=== PATIENT | male | born 1955 | race African-American/Black ===

== ENCOUNTER 2018-02-21 04:02 | Emergency (ER) | payer SELFPAY ==
[2018-02-21 04:27] VITALS: TEMP 98.4; BMI 21.7
--- NOTE | 2018-02-21 05:08 | PDOC ---
History of Present Illness - General Chief Complaint: Alcohol intoxication Stated Complaint: INTOX Time Seen by Provider: 02/21/18 04:39 Past History - Past Medical History COPD: No HTN: Yes - Suicide/Smoking/Psychosocial Hx Smoking History: Current every day smoker Number of Cigarettes Smoked Daily: 20 Information on smoking cessation initiated: No *Physical Exam - Vital Signs Last Vital Signs Temp Pulse Resp BP Pulse Ox 98.4 F 78 18 131/77 99 02/21/18 04:21 02/21/18 04:21 02/21/18 04:21 02/21/18 04:21 02/21/18 04:21 *DC/Admit/Observation/Transfer - Discharge Dispostion Condition at time of disposition: Stable - Referrals - Patient Instructions - Post Discharge Activity
--- NOTE | 2018-02-21 07:50 | PDOC ---
Attending Attestation - Medical Decision Making 02/21/18 10:26 Documentation prepared by Avery Eugene, acting as medical administrative technician for Daniel De Anda MD. <Avery Eugene - Last Filed: 02/21/18 10:26> - Resident Resident Name: Jose Edmond - ED Attending Attestation I have performed the following: I have examined & evaluated the patient, The case was reviewed & discussed with the resident, I agree w/resident's findings & plan, Exceptions are as noted - HPI HPI: 02/21/18 07:51 62y M htn presenting with complaint complaint of wanting to get 'checked out'. The patient states that he was in his usual state of health earlier today, had a verbal altercation with his girlfriend who kciked him out of his shared apartment. The pt states he then developed a sharp, pulsating pain in his L chest that was nonraditing lasting approx 15 minutes before resolving - no associated sob, diaphoresis, n/v, cough, fever, abd pain, back pain. Pt resolved spontaneously. He then amanuel tto the police departmnt who told him to come to the ED. pt states he did drink a few beers earlier tonight. pt currently is asypmtomatic. pt notes that he occasionally has this type of pain for the past year and a half, sometimes it comes when heis working and lifting heavy boxes, but sometimes comes when he is relaxing. pt is a smoker. no konwn famly hx of heart disease pmd: dr. cardona. GENERAL: The patient is awake, alert, and fully oriented, Nontoxic - in no acute distress. HEAD: Normocephalic, atraumatic. EYES: extraocular movements intact, sclera anicteric, conjunctiva clear. ENT: Normal voice, Moist mucous membranes. NECK: Normal range of motion, supple LUNGS: Breath sounds equal, clear to auscultation bilaterally. No wheezes, no rhonchi, no rales. HEART: Regular rate and rhythm, normal S1 and S2 without murmur, rub or gallop. ABDOMEN: Soft, nontender, normoactive bowel sounds. No guarding, no rebound. . No CVA tenderness EXTREMITIES: Normal range of motion, no edema. No clubbing or cyanosis. No cords, erythema, or tenderness. NEUROLOGICAL: No facial assymetry, Normal speech PSYCH: Normal mood, normal affect. SKIN: Warm, Dry, normal turgor, The patient's chest pain is atypical, will obtain a troponin, EKG, chest x-ray. If workup is negative we will have the patient follow-up with cardiology for further workup and risk stratification. - Physicial Exam PE: 02/22/18 13:35 see above - Medical Decision Making 02/21/18 10:15 trop neg x 1 awaiting 2nd trop at 11:30 if neg and pt feeling asypmtomatic will dc with pmd/card fu 02/21/18 14:15 trop x 2 neg pt asypmtomatic will dc the pt with pmd and card fu return precautions were discussed <Daniel De Anda - Last Filed: 02/22/18 13:36> Heart Score/ECG Review - ECG Impressions Comment:: 02/21/18 10:16 Twelve-lead EKG was performed and reviewed by me. There is normal sinus rhythm with a normal rate. Rate of 82 Right lopez axis LVH <Daniel De Anda - Last Filed: 02/22/18 13:36> ED Treatment Course - LABORATORY CBC & Chemistry Diagram: 02/21/18 08:30 02/21/18 08:30 - ADDITIONAL ORDERS Additional order review: Laboratory Results 02/21/18 08:30 Sodium 142 Potassium 4.0 Chloride 107 Carbon Dioxide 27 Anion Gap 8 BUN 18 Creatinine 0.9 Creat Clearance w eGFR > 60 Random Glucose 99 Calcium 8.5 Total Bilirubin 0.1 L AST 26 ALT 29 Alkaline Phosphatase 80 Creatine Kinase 201 Troponin I 0.02 Total Protein 7.4 Albumin 3.9 02/21/18 08:30 RBC 4.47 MCV 91.4 MCHC 33.5 RDW 14.5 MPV 7.5 Neutrophils % 62.2 Lymphocytes % 26.6 Monocytes % 8.4 Eosinophils % 1.8 Basophils % 1.0 - RADIOLOGY Radiograph Interpretation: 02/21/18 10:24 EXAM: CXR INTERPETED BY: Dr. Wise REVIEWED BY: Dr. De Anda IMPRESSION: No acute pathology. Hyperinflation. No comparison studies - Medications Given in the ED: ED Medications Discontinued Medications Generic Name Dose Route Start Last Admin Trade Name Freq PRN Reason Stop Dose Admin Aspirin 162 mg 02/21/18 08:06 02/21/18 08:18 Asa - PO 02/21/18 08:07 162 mg ONCE ONE Administration <Avery Eugene - Last Filed: 02/21/18 10:26> - LABORATORY CBC & Chemistry Diagram: 02/21/18 08:30 02/21/18 08:30 <Daniel De Anda - Last Filed: 02/22/18 13:36>
--- NOTE | 2018-02-21 08:04 | PDOC ---
History of Present Illness - General Chief Complaint: Alcohol intoxication Stated Complaint: INTOX Time Seen by Provider: 02/21/18 04:39 History Source: Patient Exam Limitations: No Limitations - History of Present Illness Initial Comments: 02/21/18 07:54 62 year old male with pmhx of HTN presented to the ED today by the police after an argument with his girl friend due to chest discofort sharp , and pulsating last 15 min comes and goes radiated to right shoulder, denies any sob, cough or diaphoresis denies any numbness or tingling in his ext . pt also reports pulsating headache 7/10 in left temporal area. Pt denies dizziness, lightheadedness, sore throat , recent cold, abdominal pain , N/V/D/C, denies any dysuria or hematuria. pt smoked marjuana last night , he drink 2-3 beers ever night . PMHX: HTN PSHx: stestched in forhead and left eyelid Allergies: NKDA Meds none FH: significant for heart disease in his dad with pace maker , HTN Mother BP and DM social hx: 1/2 PPD /20 years. drink beer and alcohol every night after work , smoke marijuana last use last night. Physical exam: Vital Signs Period Temp Pulse Resp BP Sys/Bennett Pulse Ox Last 24 Hr 98.4 F 78 18 131/77 99 General: well nourished in NAD Head: NC/AT , old steches caitlyn in left eye lid Neck: supple Lungs: CTA B/L Heart: S1, S2, RRR, 2/6 systolic murmur best heard in LLSB. Neuro: no focal deficit, normal speech , normal gait , no tremor, no nystagmus , sensation symmetric, strength 5/5 upper and lower. LE: +2 DP, no edema Psych: appropriate mood and effect. Past History - Past Medical History Allergies/Adverse Reactions: Allergies Allergy/AdvReac Type Severity Reaction Status Date / Time No Known Allergies Allergy Verified 02/21/18 08:18 Home Medications: Ambulatory Orders NK [No Known Home Medication] 02/21/18 COPD: No HTN: Yes - Suicide/Smoking/Psychosocial Hx Smoking History: Current every day smoker Number of Cigarettes Smoked Daily: 20 Information on smoking cessation initiated: No *Physical Exam - Vital Signs Last Vital Signs Temp Pulse Resp BP Pulse Ox 98.4 F 78 18 131/77 99 02/21/18 04:21 02/21/18 04:21 02/21/18 04:21 02/21/18 04:21 02/21/18 04:21 ED Treatment Course - LABORATORY CBC & Chemistry Diagram: 02/21/18 08:30 02/21/18 08:30 *DC/Admit/Observation/Transfer Diagnosis at time of Disposition: Chest pain - Discharge Dispostion Disposition: HOME Condition at time of disposition: Stable Admit: No - Referrals Referrals: Suleman Da Silva MD [Staff Physician] - 1 week Williams Melendez MD [Staff Physician] - - Patient Instructions Printed Discharge Instructions: DI for Alcohol Abuse, DI for Chest Pain Additional Instructions: you presented to the Ed due to chest pain , the work up come back negative You will be discharged home please follow up with your primary doctor Williams Melendez within one week Please follow up with cardiology for further evaluation and stress test if you develop fever, chills or sever chest pain please call 911 or return to emergency room as soon as possible - Post Discharge Activity
[2018-02-21] MEDS ORDERED: ASPIRIN 81 MG CHEWABLE TABLETS PO ONE (08:06)
[2018-02-21] MEDS ORDERED: ASPIRIN COATED 81 MG TABLET.EC ONE (08:21)
[2018-02-21 08:43] LABS: EOS % 1.8 % (0-4.5); HEMATOCRIT 40.9 % (35.4-49); HEMOGLOBIN 13.7 GM/dL (11.7-16.9); LYMPH % 26.6 % (8-40); MCH 30.6 pg (25.7-33.7); MCHC 33.5 g/dl (32.0-35.9); MEAN CELL VOLUME 91.4 fl (80-96); MEAN PLT VOLUME 7.5 fl (7.5-11.1); MONO % 8.4 % (3.8-10.2); NEUT % 62.2 % (42.8-82.8); PLATELET COUNT 335 K/MM3 (134-434); RBC 4.47 M/mm3 (4.00-5.60); RDW 14.5 % (11.9-15.9); WHITE BLOOD COUNT 5.9 K/mm3 (4.0-10.0)
[2018-02-21 09:09] LABS: ALBUMIN 3.9 g/dl (3.4-5.0); ALK PHOS 80 U/L (45-117); ANION GAP 8 (8-16); BILIRUBIN,TOTAL 0.1 mg/dL (0.2-1.0); BLOOD UREA NITROGEN 18 mg/dL (7-18); CALCIUM 8.5 mg/dL (8.5-10.1); CHLORIDE 107 mmol/L (98-107); CO2 27 mmol/L (21-32); CREATININE 0.9 mg/dL (0.7-1.3); GLUCOSE,RANDOM 99 mg/dL (74-106); SGOT/AST 26 U/L (15-37); SGPT/ALT 29 U/L (12-78); SODIUM 142 mmol/L (136-145); TOT PROT 7.4 g/dl (6.4-8.2)
--- NOTE | 2018-02-21 11:03 | EKG ---
Test Reason : Blood Pressure : / mmHG Vent. Rate : 082 BPM Atrial Rate : 082 BPM P-R Int : 130 ms QRS Dur : 090 ms QT Int : 384 ms P-R-T Axes : 077 090 070 degrees QTc Int : 448 ms NORMAL SINUS RHYTHM BIATRIAL ENLARGEMENT RIGHTWARD AXIS LEFT VENTRICULAR HYPERTROPHY CANNOT RULE OUT SEPTAL INFARCT , AGE UNDETERMINED ABNORMAL ECG NO PREVIOUS ECGS AVAILABLE Confirmed by BRIGID PFEIFFER, SOCORRO ([id number]) on 02/21/2018 11:03:32 AM Referred By: Confirmed By:SOCORRO RAINEY MD
[2018-02-21 13:16] VITALS: BP 128/74; PULSE 71
== END 2018-02-21 13:16 | disposition home or self-care (01) ==
LOC: JER 04:02
DX: R07.89 Other chest pain (principal); I10 Essential (primary) hypertension
CPT/HCPCS: 36415; 71046-TC-FY; 80053; 82550; 82553; 84484; 85025; 93005; 93010; 99284-25

== ENCOUNTER 2022-04-20 16:38 | Emergency (ER) | payer SELFPAY ==
[2022-04-20 16:57] VITALS: TEMP 99; BMI 23.5
[2022-04-20] MEDS ORDERED: ASPIRIN 325 MG TABLET PO ONE (18:47)
[2022-04-20] MEDS ORDERED: HEPARIN NA (PORCINE) 5,000 UNITS/ML 1ML VIAL IVPUSH ONE (18:48)
[2022-04-20] MEDS ORDERED: ASPIRIN 325 MG TABLET ONE (19:27)
[2022-04-20] MEDS ORDERED: HEPARIN NA (PORCINE) 5,000 UNITS/ML 1ML VIAL ONE (19:28)
[2022-04-20 20:51] VITALS: BP 124/77; PULSE 110
[2022-04-20] MEDS ORDERED: TICAGRELOR 60 MG TABLET PO SCH (22:00)
== END 2022-04-20 19:57 | disposition short-term general hospital (02) ==
LOC: JER 16:38
PROC: 3E033GC Introduction of Other Therapeutic Substance into Peripheral Vein, Percutaneous Approach (ICD-10-PCS; principal; 2022-04-20)
DX: I21.3 ST elevation (STEMI) myocardial infarction of unspecified site (principal); M25.511 Pain in right shoulder; M25.512 Pain in left shoulder
CPT/HCPCS: 73030-TC-LT-FY; 73030-TC-RT-FY; 93005; 93010; 99285-25; J1644

== ENCOUNTER 2023-06-14 08:02 | Inpatient (IN) | payer OTHER ==
[2023-06-14 09:49] LABS: BASO % 0.5 % (0-2.0); EOS % 0.1 % (0-4.5); HEMATOCRIT 38.7 % (35.4-49); HEMOGLOBIN 12.8 GM/dL (11.7-16.9); MCH 30.6 pg (25.7-33.7); MCHC 33.1 g/dl (32.0-35.9); MEAN CELL VOLUME 92.5 fl (80-96); MEAN PLT VOLUME 7.8 fl (7.5-11.1); NEUT % 75.4 % (42.8-82.8); PLATELET COUNT 347 10^3/uL (134-434); RBC 4.18 M/mm3 (4.00-5.60); WHITE BLOOD COUNT 6.8 K/mm3 (4.0-10.0)
[2023-06-14 09:53] LABS: INR 1.03 (0.83-1.09); PROTHROMBIN TIME (PATIENT) 11.9 SEC (9.7-13.0)
[2023-06-14 09:56] LABS: ACTIVATED PTT 31.4 SECONDS (25.2-36.5)
[2023-06-14 10:01] LABS: URINE APPEARANCE TURBID; URINE COLOR RED; URINE GLUCOSE (UA) 2+ (NEGATIVE)
[2023-06-14 10:02] LABS: PH,URINE 5.5 (5.0-8.0); URINE BILIRUBIN SMALL (NEGATIVE); URINE KETONE TRACE (NEGATIVE); URINE LEUK ESTERASE 1+ (NEGATIVE); URINE NITRITE NEGATIVE (NEGATIVE); URINE PROTEIN 4+ (NEGATIVE); URINE RBC TMTC /uL (0-23.9); URINE UROBILINOGEN 0.2 mg/dL (0.2-1.0); URINE WBC 50-100 /uL (0-25.8)
[2023-06-14 10:19] LABS: POTASSIUM 4.3 mmol/L (3.5-5.1)
[2023-06-14 10:22] LABS: ALBUMIN 4.3 g/dl (3.4-5.0)
[2023-06-14 10:25] LABS: CREATININE 1.2 mg/dL (0.55-1.3)
[2023-06-14 10:27] LABS: BILIRUBIN,TOTAL 0.3 mg/dL (0.2-1); TOT PROT 7.7 g/dl (6.4-8.2)
[2023-06-14] MEDS ORDERED: NITROFURANTOIN MACROCRYSTAL 50 MG CAPSULE (FP) PO ONE (14:15)
[2023-06-14] MEDS: NITROFURANTOIN MACROCRYSTAL 50 MG CAPSULE (FP) PO SCH ×2 (14:25→14:40)
[2023-06-14] MEDS ORDERED: morphine CARPU-JECT 4 MG/1 ML DISP.SYRIN IVPUSH ONE (15:29)
[2023-06-14] MEDS ORDERED: morphine SULFATE 4 MG/ML VIAL ONE (15:42)
[2023-06-14] MEDS ORDERED: ACETAMINOPHEN 325 MG TABLET (FP) PO PRN (16:01)
[2023-06-14] MEDS ORDERED: morphine SULFATE 4 MG/ML VIAL IVPUSH PRN (16:45)
[2023-06-14] MEDS: CEFTRIAXONE 1 GM in DEXTROSE 5%-WATER - 50 ML IVPB SCH (17:32)
[2023-06-14] MEDS ORDERED: CEFTRIAXONE 1 GM/50 ML BAG ONE (17:33)
[2023-06-14] MEDS: CARVEDILOL 6.25 MG TABLET (FP) PO SCH (21:40)
[2023-06-14 22:28] LABS: HEMATOCRIT 38.6 % (35.4-49); HEMOGLOBIN 13.1 GM/dL (11.7-16.9); MCH 30.6 pg (25.7-33.7); MCHC 33.9 g/dl (32.0-35.9); MEAN CELL VOLUME 90.5 fl (80-96); MEAN PLT VOLUME 7.2 fl (7.5-11.1); PLATELET COUNT 355 10^3/uL (134-434); RBC 4.27 M/mm3 (4.00-5.60); RDW 14.8 % (11.9-15.9); WHITE BLOOD COUNT 9.2 K/mm3 (4.0-10.0)
[2023-06-15] MEDS ORDERED: morphine SULFATE 4 MG/ML VIAL ONE (00:26)
[2023-06-15] MEDS ORDERED: LABETALOL HCL 5 MG/1 ML (100MG/20 ML VIAL) IVPUSH ONE (00:52)
[2023-06-15] MEDS ORDERED: LABETALOL HCL 20 MG/4 ML VIAL ONE (01:07)
[2023-06-15 08:02] VITALS: BMI 29.6
[2023-06-15 08:02] LABS: BASO % 0.1 % (0-2.0); HEMATOCRIT 33.6 % (35.4-49); HEMOGLOBIN 11.1 GM/dL (11.7-16.9); LYMPH % 5.6 % (8-40); MCH 30.7 pg (25.7-33.7); MEAN CELL VOLUME 92.9 fl (80-96); MEAN PLT VOLUME 8.4 fl (7.5-11.1); MONO % 8.4 % (3.8-10.2); NEUT % 85.9 % (42.8-82.8); PLATELET COUNT 321 10^3/uL (134-434); RBC 3.61 M/mm3 (4.00-5.60); RDW 14.8 % (11.9-15.9); WHITE BLOOD COUNT 14.2 K/mm3 (4.0-10.0)
[2023-06-15 08:41] LABS: POTASSIUM 4.6 mmol/L (3.5-5.1)
[2023-06-15 08:46] LABS: CALCIUM 9.2 mg/dL (8.5-10.1)
[2023-06-15 08:47] LABS: ALBUMIN 3.8 g/dl (3.4-5.0)
[2023-06-15 08:48] LABS: BLOOD UREA NITROGEN 44.5 mg/dL (7-18)
[2023-06-15 08:49] LABS: CREATININE 1.8 mg/dL (0.55-1.3)
[2023-06-15] MEDS ORDERED: SODIUM CHLORIDE 0.45% 1,000 ML IV SCH (09:30)
[2023-06-15] MEDS: CARVEDILOL 6.25 MG TABLET (FP) PO SCH ×2 (10:12→22:28)
[2023-06-15] MEDS: CEFTRIAXONE 1 GM in DEXTROSE 5%-WATER - 50 ML IVPB SCH (10:15)
[2023-06-15 14:51] LABS: N-TERMINAL BNP 3836.9 pg/ml (5-125)
[2023-06-15] MEDS ORDERED: SODIUM CHLORIDE 0.45% 250 ML IV SCH (18:15)
[2023-06-15] MEDS ORDERED: ATORVASTATIN CA 80 MG TABLET (FP) PO SCH (22:00)
[2023-06-16 07:54] LABS: HEMATOCRIT 26.5 % (35.4-49); HEMOGLOBIN 8.9 GM/dL (11.7-16.9); MCHC 33.7 g/dl (32.0-35.9); MEAN CELL VOLUME 92.1 fl (80-96); MEAN PLT VOLUME 8.5 fl (7.5-11.1); PLATELET COUNT 265 10^3/uL (134-434); RBC 2.88 M/mm3 (4.00-5.60); RDW 14.5 % (11.9-15.9); WHITE BLOOD COUNT 7.1 K/mm3 (4.0-10.0)
[2023-06-16 07:58] LABS: POTASSIUM 4.1 mmol/L (3.5-5.1)
[2023-06-16 08:14] LABS: CALCIUM 8.6 mg/dL (8.5-10.1)
[2023-06-16 08:15] LABS: ALBUMIN 3.3 g/dl (3.4-5.0); BLOOD UREA NITROGEN 47.1 mg/dL (7-18); MAGNESIUM 2.3 mg/dL (1.8-2.4)
[2023-06-16 08:16] LABS: CREATININE 1.3 mg/dL (0.55-1.3)
[2023-06-16 08:17] LABS: BILIRUBIN,TOTAL 0.6 mg/dL (0.2-1)
[2023-06-16 08:18] LABS: PHOSPHOROUS 3.2 mg/dL (2.5-4.9); TOT PROT 6.1 g/dl (6.4-8.2)
[2023-06-16] MEDS ORDERED: SEVOFLURANE 250 ML BTL ONE (08:21)
[2023-06-16] MEDS ORDERED: PROPOFOL 20 ML ONE (08:23)
[2023-06-16] MEDS ORDERED: MIDAZOLAM HCL 2 MG/2 ML SINGLE DOSE VIAL ONE (08:23)
[2023-06-16] MEDS ORDERED: KETAMINE HCL 500 MG/10 ML VIAL ONE (08:23)
[2023-06-16] MEDS ORDERED: ONDANSETRON 4 MG/2 ML VIAL ONE (08:24)
[2023-06-16] MEDS ORDERED: ceFAZolin SODIUM 1 GM VIAL ONE (09:01)
[2023-06-16] MEDS ORDERED: ceFAZolin SODIUM 1 GM VIAL IVPB ONE (09:01)
[2023-06-16] MEDS ORDERED: oxyCODONE HCL 5 MG TABLET PO PRN (09:38)
[2023-06-16] MEDS: CARVEDILOL 6.25 MG TABLET (FP) PO SCH ×2 (10:00→21:33)
[2023-06-16] MEDS: CEFTRIAXONE 1 GM in DEXTROSE 5%-WATER - 50 ML IVPB SCH (10:00)
[2023-06-16] MEDS ORDERED: ACETAMINOPHEN 325 MG TABLET (FP) PO PRN (10:04)
[2023-06-16] MEDS ORDERED: morphine SULFATE 4 MG/ML VIAL IVPUSH PRN (10:04)
[2023-06-16] MEDS: ATORVASTATIN CA 80 MG TABLET (FP) PO SCH (21:33)
[2023-06-17 06:05] VITALS: RESP 18
[2023-06-17 08:23] LABS: HEMATOCRIT 21.2 % (35.4-49); HEMOGLOBIN 7.2 GM/dL (11.7-16.9); MCH 31.6 pg (25.7-33.7); MCHC 34.1 g/dl (32.0-35.9); MEAN CELL VOLUME 92.5 fl (80-96); MEAN PLT VOLUME 8.7 fl (7.5-11.1); PLATELET COUNT 216 10^3/uL (134-434); RBC 2.29 M/mm3 (4.00-5.60); RDW 14.1 % (11.9-15.9); WHITE BLOOD COUNT 6.7 K/mm3 (4.0-10.0)
[2023-06-17 08:33] LABS: POTASSIUM 4.4 mmol/L (3.5-5.1)
[2023-06-17 08:42] LABS: ALBUMIN 2.9 g/dl (3.4-5.0); BLOOD UREA NITROGEN 26.3 mg/dL (7-18); CALCIUM 8.3 mg/dL (8.5-10.1); MAGNESIUM 2.1 mg/dL (1.8-2.4)
[2023-06-17 08:45] LABS: PHOSPHOROUS 2.9 mg/dL (2.5-4.9)
[2023-06-17 08:46] LABS: BILIRUBIN,TOTAL 0.6 mg/dL (0.2-1); TOT PROT 5.4 g/dl (6.4-8.2)
[2023-06-17] MEDS: CARVEDILOL 6.25 MG TABLET (FP) PO SCH ×2 (10:01→21:53)
[2023-06-17] MEDS: CEFTRIAXONE 1 GM in DEXTROSE 5%-WATER - 50 ML IVPB SCH (10:01)
[2023-06-17] MEDS: ATORVASTATIN CA 80 MG TABLET (FP) PO SCH (21:53)
[2023-06-18 08:52] LABS: HEMATOCRIT 26.6 % (35.4-49); HEMOGLOBIN 9.2 GM/dL (11.7-16.9); MCH 31.2 pg (25.7-33.7); MCHC 34.7 g/dl (32.0-35.9); MEAN CELL VOLUME 89.8 fl (80-96); MEAN PLT VOLUME 7.9 fl (7.5-11.1); PLATELET COUNT 246 10^3/uL (134-434); RBC 2.96 M/mm3 (4.00-5.60); RDW 15.4 % (11.9-15.9); WHITE BLOOD COUNT 7.2 K/mm3 (4.0-10.0)
[2023-06-18 09:18] LABS: POTASSIUM 4.5 mmol/L (3.5-5.1)
[2023-06-18 09:28] LABS: IRON SERUM 71 ug/dL (50-175)
[2023-06-18 09:29] LABS: TOTAL IRON BINDING CAPACITY 213 ug/dL (250-450)
[2023-06-18 09:30] LABS: CALCIUM 8.5 mg/dL (8.5-10.1)
[2023-06-18 09:31] LABS: BLOOD UREA NITROGEN 15.7 mg/dL (7-18); MAGNESIUM 1.9 mg/dL (1.8-2.4)
[2023-06-18 09:32] LABS: PHOSPHOROUS 3.1 mg/dL (2.5-4.9)
[2023-06-18 09:33] LABS: CREATININE 0.9 mg/dL (0.55-1.3)
[2023-06-18 09:35] LABS: TOT PROT 5.8 g/dl (6.4-8.2)
[2023-06-18 09:36] LABS: BILIRUBIN,TOTAL 0.8 mg/dL (0.2-1)
[2023-06-18] MEDS: CEFTRIAXONE 1 GM in DEXTROSE 5%-WATER - 50 ML IVPB SCH (10:49)
[2023-06-18] MEDS: CARVEDILOL 6.25 MG TABLET (FP) PO SCH (10:49)
[2023-06-18 12:09] VITALS: BP 97/63; PULSE 57; TEMP 98.5
== END 2023-06-18 13:03 | disposition left against medical advice (07) | DRG 717 ==
LOC: JER 08:02 → JERBED 15:21 → J4W 06-15 01:47
PROVIDERS: ADMIT Internal Medicine; ATTEND Internal Medicine
PROC: 0TCD8ZZ Extirpation of Matter from Urethra, Via Natural or Artificial Opening Endoscopic (ICD-10-PCS; 2023-06-16)
PROC: 0W3R8ZZ Control Bleeding in Genitourinary Tract, Via Natural or Artificial Opening Endoscopic (ICD-10-PCS; principal; 2023-06-16 08:30)
DX: N40.1 Benign prostatic hyperplasia with lower urinary tract symptoms (principal); N17.9 Acute kidney failure, unspecified; N39.0 Urinary tract infection, site not specified; I10 Essential (primary) hypertension; I25.10 Atherosclerotic heart disease of native coronary artery without angina pectoris; R31.0 Gross hematuria; F17.210 Nicotine dependence, cigarettes, uncomplicated; R33.9 Retention of urine, unspecified; I25.5 Ischemic cardiomyopathy; F10.10 Alcohol abuse, uncomplicated; Z95.5 Presence of coronary angioplasty implant and graft; D64.9 Anemia, unspecified
CPT/HCPCS: 36415; 36430; 71046-TC-FY; 74178-TC; 80053; 80061; 81003; 82607; 82728; 83036; 83540; 83550; 83690; 83735; 83880; 84100; 84443; 84466; 84484; 85025; 85027; 85045; 85610; 85730; 86850; 86900; 86901; 86922; 87086; 93005; 93010; 93306-TC; 94760; 99285-25; P9058; Q9967

== ENCOUNTER 2023-07-03 17:52 | Emergency (ER) | payer OTHER ==
[2023-07-03 18:03] VITALS: BP 139/88; PULSE 80; RESP 20; TEMP 98.2; BMI 19.8
[2023-07-03 21:20] LABS: BASO % 1.2 % (0-2.0); EOS % 1.3 % (0-4.5); HEMATOCRIT 27.9 % (35.4-49); HEMOGLOBIN 9.3 GM/dL (11.7-16.9); LYMPH % 32.7 % (8-40); MCH 31.5 pg (25.7-33.7); MCHC 33.4 g/dl (32.0-35.9); MEAN CELL VOLUME 94.5 fl (80-96); MONO % 8.4 % (3.8-10.2); NEUT % 56.4 % (42.8-82.8); PLATELET COUNT 406 10^3/uL (134-434); RBC 2.96 M/mm3 (4.00-5.60); WHITE BLOOD COUNT 4.7 K/mm3 (4.0-10.0)
[2023-07-03 21:30] LABS: EPI CELLS 14 /uL (0-25.1); HYALINE CASTS 51 /uL (0-3.1); URINE APPEARANCE TURBID; URINE BILIRUBIN 2+ (NEGATIVE); URINE COLOR RED; URINE GLUCOSE (UA) NEGATIVE (NEGATIVE); URINE KETONE NEGATIVE (NEGATIVE); URINE LEUK ESTERASE 3+ (NEGATIVE); URINE NITRITE POSITIVE (NEGATIVE); URINE PROTEIN 2+ (NEGATIVE); URINE RBC 17895 /uL (0-23.9); URINE UROBILINOGEN 0.2 mg/dL (0.2-1.0); URINE WBC 39 /uL (0-25.8)
[2023-07-03 21:42] LABS: POTASSIUM 4.1 mmol/L (3.5-5.1)
[2023-07-03 21:44] LABS: CALCIUM 8.8 mg/dL (8.5-10.1)
[2023-07-03 21:45] LABS: ALBUMIN 3.2 g/dl (3.4-5.0); BLOOD UREA NITROGEN 11.7 mg/dL (7-18)
[2023-07-03 21:48] LABS: CREATININE 1.1 mg/dL (0.55-1.3)
[2023-07-03 21:49] LABS: TOT PROT 6.2 g/dl (6.4-8.2)
[2023-07-03 21:50] LABS: BILIRUBIN,TOTAL 0.3 mg/dL (0.2-1)
[2023-07-03 22:05] LABS: URINE BACTERIA NONE SEEN /uL (0-1359)
[2023-07-03] MEDS ORDERED: CEFTRIAXONE 1 GM/50 ML BAG ONE (22:36)
== END 2023-07-03 23:07 | disposition home or self-care (01) ==
LOC: JER 17:52
DX: N30.01 Acute cystitis with hematuria (principal); R30.0 Dysuria
CPT/HCPCS: 36415; 80053; 81003; 85025; 87086; 96374; 99284-25

== ENCOUNTER 2023-10-21 07:52 | Observation (INO) | payer OTHER ==
[2023-10-21 09:44] LABS: INR 1.1 (0.83-1.09); PROTHROMBIN TIME (PATIENT) 12.7 SEC (9.7-13.0)
[2023-10-21 09:45] LABS: BASO % 1.4 % (0-2.0); EOS % 1.4 % (0-4.5); HEMOGLOBIN 8.5 GM/dL (11.7-16.9); LYMPH % 7.7 % (8-40); MCH 23.6 pg (25.7-33.7); MCHC 32.6 g/dl (32.0-35.9); MEAN CELL VOLUME 72.5 fl (80-96); MEAN PLT VOLUME 7.4 fl (7.5-11.1); MONO % 11.6 % (3.8-10.2); NEUT % 77.9 % (42.8-82.8); PLATELET COUNT 530 10^3/uL (134-434); RBC 3.59 M/mm3 (4.00-5.60); RDW 24.2 % (11.9-15.9); WHITE BLOOD COUNT 4.8 K/mm3 (4.0-10.0)
[2023-10-21 09:55] LABS: POTASSIUM 4.5 mmol/L (3.5-5.1)
[2023-10-21 09:57] LABS: CALCIUM 8.8 mg/dL (8.5-10.1)
[2023-10-21 09:58] LABS: ALBUMIN 3.6 g/dl (3.4-5.0); BLOOD UREA NITROGEN 18.9 mg/dL (7-18)
[2023-10-21 10:01] LABS: CREATININE 1.2 mg/dL (0.55-1.3)
[2023-10-21 10:02] LABS: MAGNESIUM 2.1 mg/dL (1.8-2.4)
[2023-10-21 10:03] LABS: BILIRUBIN,TOTAL 0.4 mg/dL (0.2-1); TOT PROT 6.9 g/dl (6.4-8.2)
[2023-10-21 10:04] LABS: N-TERMINAL BNP 390.4 pg/ml (5-125)
[2023-10-21] MEDS ORDERED: ASPIRIN 81 MG CHEWABLE TABLETS PO ONE (10:26)
[2023-10-21] MEDS ORDERED: ASPIRIN 81 MG CHEWABLE TABLETS ONE (10:28)
[2023-10-21 11:12] LABS: ANISOCYTOSIS 3+; MACROCYTOSIS 1+; OVALOCYTE 1+; TARGET CELLS 1+
[2023-10-21] MEDS ORDERED: ENOXAPARIN NA (PORCINE) 60 MG/0.6 ML DISP.SYRIN SQ SCH (12:45)
[2023-10-21 13:58] LABS: RETICULOCYTES 1.03 % (0.5-1.5)
[2023-10-21] MEDS: CARVEDILOL 6.25 MG TABLET (FP) PO SCH (21:57)
[2023-10-21] MEDS: SACUBITRIL/VALSARTAN 24 MG-26 MG TABLET PO SCH (21:57)
[2023-10-21] MEDS ORDERED: ATORVASTATIN CA 80 MG TABLET (FP) PO SCH (22:00)
[2023-10-22 07:00] LABS: POTASSIUM 4.3 mmol/L (3.5-5.1)
[2023-10-22 07:03] LABS: BLOOD UREA NITROGEN 19.6 mg/dL (7-18); MAGNESIUM 2.1 mg/dL (1.8-2.4)
[2023-10-22 07:05] LABS: CREATININE 1.1 mg/dL (0.55-1.3)
[2023-10-22 07:07] LABS: BILIRUBIN,TOTAL 0.2 mg/dL (0.2-1); TOT PROT 5.9 g/dl (6.4-8.2)
[2023-10-22 07:15] LABS: CALCIUM 8.2 mg/dL (8.5-10.1)
[2023-10-22 07:37] LABS: HEMATOCRIT 24.9 % (35.4-49); MCH 23.2 pg (25.7-33.7); MEAN CELL VOLUME 72.4 fl (80-96); MEAN PLT VOLUME 7.6 fl (7.5-11.1); PLATELET COUNT 524 10^3/uL (134-434); RBC 3.44 M/mm3 (4.00-5.60); RDW 24.2 % (11.9-15.9); WHITE BLOOD COUNT 4.2 K/mm3 (4.0-10.0)
[2023-10-22 08:36] LABS: ANISOCYTOSIS 3+; MACROCYTOSIS 0; TARGET CELLS 2+
[2023-10-22] MEDS: CARVEDILOL 6.25 MG TABLET (FP) PO SCH (09:49)
[2023-10-22] MEDS: SACUBITRIL/VALSARTAN 24 MG-26 MG TABLET PO SCH (09:49)
[2023-10-22] MEDS ORDERED: FINASTERIDE 5 MG TABLET (FP) PO SCH (10:00)
[2023-10-22] MEDS ORDERED: SPIRONOLACTONE 25 MG TABLET PO SCH (10:00)
[2023-10-22] MEDS ORDERED: CLOPIDOGREL BISULFATE 75 MG TABLET (FP) PO SCH ×2 (10:00)
[2023-10-22] MEDS ORDERED: ASPIRIN 81 MG CHEWABLE TABLETS PO SCH (10:00)
[2023-10-22] MEDS ORDERED: EMPAGLIFLOZIN (JARDIANCE) 10 MG TABLET PO SCH ×2 (10:00)
[2023-10-22 14:56] VITALS: BP 107/68; PULSE 66; RESP 17; TEMP 99.3
== END 2023-10-22 19:00 | disposition home or self-care (01) ==
LOC: JER 07:52 → JERBED 11:53 → J4W 13:32
PROVIDERS: ADMIT Internal Medicine; ATTEND Internal Medicine
PROC: 3E023GC Introduction of Other Therapeutic Substance into Muscle, Percutaneous Approach (ICD-10-PCS; principal; 2023-10-21)
DX: I25.10 Atherosclerotic heart disease of native coronary artery without angina pectoris (principal); I50.22 Chronic systolic (congestive) heart failure; R07.9 Chest pain, unspecified; R07.2 Precordial pain; Z79.01 Long term (current) use of anticoagulants; R77.8 Other specified abnormalities of plasma proteins; R31.9 Hematuria, unspecified; I11.0 Hypertensive heart disease with heart failure; E78.5 Hyperlipidemia, unspecified; Z95.5 Presence of coronary angioplasty implant and graft; F17.210 Nicotine dependence, cigarettes, uncomplicated; D64.9 Anemia, unspecified
CPT/HCPCS: 0241U-QW; 36415; 71045-TC-FY; 80053; 80061; 82607; 82728; 82746; 83540; 83550; 83615; 83735; 83880; 84466; 84484; 85025; 85045; 85610; 86850; 86900; 86901; 93005; 93010; 93306-TC; 96372; 99285-25; G0378

== ENCOUNTER 2023-12-25 22:07 | Emergency (ER) | payer OTHER ==
[2023-12-25 22:27] VITALS: TEMP 97.4; BMI 20.5
[2023-12-25] MEDS ORDERED: HEPARIN INFUSION - 500 ML IVPB SCH (23:15)
[2023-12-25] MEDS ORDERED: ASPIRIN 81 MG CHEWABLE TABLETS ONE (23:25)
[2023-12-25] MEDS ORDERED: HEPARIN NA (PORCINE) 5,000 UNITS/ML 1ML VIAL ONE (23:25)
[2023-12-25 23:27] LABS: VENOUS O2 SATURATION 59.7 % (70-80); VENOUS PCO2 41.9 mmHg (38-52); VENOUS PH 7.393 (7.310-7.410)
[2023-12-25] MEDS: HEPARIN NA (PORCINE) 5,000 UNITS/ML 1ML VIAL IVPUSH ONE (23:30)
[2023-12-25] MEDS: ASPIRIN 81 MG CHEWABLE TABLETS PO ONE (23:30)
[2023-12-25 23:34] LABS: HEMATOCRIT 27.2 % (35.4-49); HEMOGLOBIN 8.7 GM/dL (11.7-16.9); INR 1.06 (0.83-1.09); MCH 24.7 pg (25.7-33.7); MCHC 32.2 g/dl (32.0-35.9); MEAN CELL VOLUME 76.6 fl (80-96); PLATELET COUNT 393 10^3/uL (134-434); PROTHROMBIN TIME (PATIENT) 12.3 SEC (9.7-13.0); RBC 3.55 M/mm3 (4.00-5.60); RDW 24.4 % (11.9-15.9)
[2023-12-25] MEDS ORDERED: TICAGRELOR 90 MG TABLET PO ONE (23:35)
[2023-12-25 23:37] LABS: ACTIVATED PTT 29.7 SECONDS (25.2-36.5)
[2023-12-25] MEDS: TICAGRELOR 60 MG TABLET PO ONE (23:40)
[2023-12-25 23:59] LABS: POTASSIUM 3.5 mmol/L (3.5-5.1)
[2023-12-26 00:01] LABS: CALCIUM 8.8 mg/dL (8.5-10.1)
[2023-12-26 00:02] LABS: ALBUMIN 3.4 g/dl (3.4-5.0); BLOOD UREA NITROGEN 13.6 mg/dL (7-18); MAGNESIUM 2.2 mg/dL (1.8-2.4)
[2023-12-26 00:06] LABS: BILIRUBIN,TOTAL 0.2 mg/dL (0.2-1)
[2023-12-26 00:07] VITALS: BP 158/88; PULSE 106; RESP 18
[2023-12-26 00:07] LABS: TOT PROT 7.1 g/dl (6.4-8.2)
[2023-12-26 00:10] LABS: N-TERMINAL BNP 624.2 pg/ml (5-125)
[2023-12-26 03:22] LABS: ANISOCYTOSIS 2+; MACROCYTOSIS 0; OVALOCYTE 2+; TARGET CELLS 2+; TEAR DROP CELLS 2+
[2023-12-26] MEDS ORDERED: TICAGRELOR 60 MG TABLET PO ONE (23:21)
== END 2023-12-26 00:10 | disposition short-term general hospital (02) ==
LOC: JER 22:07
PROC: 3E033NZ Introduction of Analgesics, Hypnotics, Sedatives into Peripheral Vein, Percutaneous Approach (ICD-10-PCS; principal; 2023-12-25)
DX: R07.9 Chest pain, unspecified (principal); R06.02 Shortness of breath
CPT/HCPCS: 36415; 71045-TC-FY; 80053; 82803; 83735; 83880; 84484; 85025; 85610; 85730; 86850; 86900; 86901; 93005; 93010; 99291; J1644

== ENCOUNTER 2024-01-30 08:35 | Emergency (ER) | payer OTHER ==
[2024-01-30 08:52] VITALS: BP 155/92; PULSE 68; RESP 18; TEMP 98.2
[2024-01-30 11:31] LABS: BASO % 0.6 % (0-2.0); EOS % 1.4 % (0-4.5); EPI CELLS 12 /uL (0-25.1); HEMATOCRIT 34.6 % (35.4-49); HEMOGLOBIN 11.2 GM/dL (11.7-16.9); HYALINE CASTS 1 /uL (0-3.1); LYMPH % 24.1 % (8-40); MCH 26.6 pg (25.7-33.7); MCHC 32.3 g/dl (32.0-35.9); MEAN CELL VOLUME 82.5 fl (80-96); MEAN PLT VOLUME 7.4 fl (7.5-11.1); MONO % 8.2 % (3.8-10.2); NEUT % 65.7 % (42.8-82.8); PLATELET COUNT 378 10^3/uL (134-434); RBC 4.19 M/mm3 (4.00-5.60); RDW 25.5 % (11.9-15.9); URINE APPEARANCE CLEAR; URINE BACTERIA 753 /uL (0-1359); URINE BILIRUBIN NEGATIVE (NEGATIVE); URINE COLOR YELLOW; URINE GLUCOSE (UA) NEGATIVE (NEGATIVE); URINE KETONE NEGATIVE (NEGATIVE); URINE LEUK ESTERASE 1+ (NEGATIVE); URINE NITRITE NEGATIVE (NEGATIVE); URINE PROTEIN 1+ (NEGATIVE); URINE RBC 141 /uL (0-23.9); URINE UROBILINOGEN 0.2 mg/dL (0.2-1.0); URINE WBC 209 /uL (0-25.8); WHITE BLOOD COUNT 3.7 K/mm3 (4.0-10.0)
[2024-01-30 11:32] LABS: INR 1.12 (0.83-1.09)
[2024-01-30 11:35] LABS: ACTIVATED PTT 33.4 SECONDS (25.2-36.5)
[2024-01-30 11:40] LABS: POTASSIUM 4.1 mmol/L (3.5-5.1)
[2024-01-30 11:42] LABS: ALBUMIN 3.7 g/dl (3.4-5.0); BLOOD UREA NITROGEN 21.7 mg/dL (7-18); CALCIUM 9.1 mg/dL (8.5-10.1)
[2024-01-30 11:45] LABS: CREATININE 0.9 mg/dL (0.55-1.3)
[2024-01-30 11:47] LABS: BILIRUBIN,TOTAL 0.6 mg/dL (0.2-1); TOT PROT 7.2 g/dl (6.4-8.2)
[2024-01-30 12:36] LABS: ANISOCYTOSIS 3+; MACROCYTOSIS 0; OVALOCYTE 1+; TARGET CELLS 1+
[2024-01-30] MEDS ORDERED: CEFTRIAXONE 1 GM/50 ML BAG ONE (12:57)
[2024-01-30] MEDS: CEFTRIAXONE 1,000 MG in DEXTROSE 5%-WATER - 50 ML IVPB ONE (13:07)
== END 2024-01-30 17:21 | disposition home or self-care (01) ==
LOC: JER 08:35
DX: R07.9 Chest pain, unspecified (principal); R30.0 Dysuria; N39.0 Urinary tract infection, site not specified; Z20.822 Contact with and (suspected) exposure to COVID-19
CPT/HCPCS: 0241U-QW; 36415; 71045-TC-FY; 74176-TC; 80053; 81003; 84484; 85025; 85610; 85730; 87086; 93005; 93010; 96365; 99285-25

== ENCOUNTER 2024-03-24 05:58 | Emergency (ER) | payer OTHER ==
[2024-03-24 06:07] VITALS: BMI 19.8
[2024-03-24] MEDS ORDERED: ASPIRIN 325 MG TABLET ONE (06:39)
[2024-03-24] MEDS: ASPIRIN 325 MG TABLET PO ONE (06:48)
[2024-03-24 07:03] LABS: BASO % 0.4 % (0-2.0); EOS % 0.1 % (0-4.5); HEMATOCRIT 35.5 % (35.4-49); HEMOGLOBIN 11.9 GM/dL (11.7-16.9); LYMPH % 13.1 % (8-40); MCH 28.1 pg (25.7-33.7); MCHC 33.6 g/dl (32.0-35.9); MEAN CELL VOLUME 83.6 fl (80-96); MEAN PLT VOLUME 7.5 fl (7.5-11.1); MONO % 6.3 % (3.8-10.2); NEUT % 80.1 % (42.8-82.8); PLATELET COUNT 437 10^3/uL (134-434); RBC 4.24 M/mm3 (4.00-5.60); RDW 20.7 % (11.9-15.9); WHITE BLOOD COUNT 6.4 K/mm3 (4.0-10.0)
[2024-03-24 07:17] LABS: POTASSIUM 3.9 mmol/L (3.5-5.1)
[2024-03-24 07:20] LABS: BLOOD UREA NITROGEN 16.4 mg/dL (7-18); CALCIUM 9.1 mg/dL (8.5-10.1)
[2024-03-24 07:21] LABS: ALBUMIN 4.2 g/dl (3.4-5.0)
[2024-03-24 07:24] LABS: CREATININE 0.9 mg/dL (0.55-1.3)
[2024-03-24 07:25] LABS: BILIRUBIN,TOTAL 0.5 mg/dL (0.2-1); TOT PROT 7.8 g/dl (6.4-8.2)
[2024-03-24 07:57] VITALS: BP 160/105; PULSE 81; RESP 19; TEMP 98.5
[2024-03-24 10:56] LABS: ANISOCYTOSIS 1+; MACROCYTOSIS 1+; OVALOCYTE 1+
== END 2024-03-24 08:06 | disposition short-term general hospital (02) ==
LOC: JER 05:58
DX: R07.89 Other chest pain (principal); R10.13 Epigastric pain; Z20.822 Contact with and (suspected) exposure to COVID-19
CPT/HCPCS: 0241U-QW; 36415; 80053; 82550; 82553; 83735; 84484; 85025; 93005; 93010; 99285-25

== ENCOUNTER 2024-04-11 08:57 | Observation (INO) | payer OTHER ==
[2024-04-11] MEDS ORDERED: ASPIRIN 325 MG TABLET ONE (10:25)
[2024-04-11] MEDS: ASPIRIN 81 MG CHEWABLE TABLETS PO ONE (10:27)
[2024-04-11 10:29] LABS: BASO % 0.8 % (0-2.0); EOS % 2.4 % (0-4.5); HEMATOCRIT 35.2 % (35.4-49); HEMOGLOBIN 11.6 GM/dL (11.7-16.9); MCH 27.9 pg (25.7-33.7); MEAN CELL VOLUME 84.3 fl (80-96); MEAN PLT VOLUME 6.8 fl (7.5-11.1); MONO % 10.8 % (3.8-10.2); PLATELET COUNT 415 10^3/uL (134-434); RBC 4.17 M/mm3 (4.00-5.60); RDW 19.3 % (11.9-15.9); WHITE BLOOD COUNT 3.4 K/mm3 (4.0-10.0)
[2024-04-11 10:37] LABS: INR 0.98 (0.83-1.09); PROTHROMBIN TIME (PATIENT) 11.1 SEC (9.7-13.0)
[2024-04-11 10:40] LABS: ACTIVATED PTT 31.2 SECONDS (25.2-36.5)
[2024-04-11 10:49] LABS: POTASSIUM 4.1 mmol/L (3.5-5.1)
[2024-04-11 10:51] LABS: ALBUMIN 3.6 g/dl (3.4-5.0); CALCIUM 8.7 mg/dL (8.5-10.1)
[2024-04-11 10:52] LABS: MAGNESIUM 2.1 mg/dL (1.8-2.4)
[2024-04-11 10:54] LABS: CREATININE 1.1 mg/dL (0.55-1.3)
[2024-04-11 10:56] LABS: BILIRUBIN,TOTAL 0.3 mg/dL (0.2-1)
[2024-04-11 20:32] VITALS: BMI 20.4
[2024-04-11] MEDS: CARVEDILOL 12.5 MG TABLET (FP) PO SCH (21:29)
[2024-04-11] MEDS: APIXABAN 2.5 MG TABLET PO SCH (21:29)
[2024-04-11] MEDS: ATORVASTATIN CA 80 MG TABLET (FP) PO SCH (21:29)
[2024-04-11] MEDS: SACUBITRIL/VALSARTAN 24 MG-26 MG TABLET PO SCH (21:29)
[2024-04-12] MEDS: EMPAGLIFLOZIN (JARDIANCE) 10 MG TABLET PO SCH (07:02)
[2024-04-12 09:11] LABS: BASO % 1.7 % (0-2.0); EOS % 2.2 % (0-4.5); HEMATOCRIT 35.5 % (35.4-49); LYMPH % 30.4 % (8-40); MCH 28.5 pg (25.7-33.7); MCHC 33.7 g/dl (32.0-35.9); MEAN CELL VOLUME 84.4 fl (80-96); MEAN PLT VOLUME 7.6 fl (7.5-11.1); MONO % 10.6 % (3.8-10.2); NEUT % 55.1 % (42.8-82.8); PLATELET COUNT 412 10^3/uL (134-434); RBC 4.21 M/mm3 (4.00-5.60); RDW 18.5 % (11.9-15.9); WHITE BLOOD COUNT 3.6 K/mm3 (4.0-10.0)
[2024-04-12 09:34] LABS: POTASSIUM 4.2 mmol/L (3.5-5.1)
[2024-04-12 09:39] LABS: BLOOD UREA NITROGEN 25.3 mg/dL (7-18); CALCIUM 8.9 mg/dL (8.5-10.1)
[2024-04-12] MEDS: FINASTERIDE 5 MG TABLET (FP) PO SCH (10:07)
[2024-04-12] MEDS: SPIRONOLACTONE 25 MG TABLET PO SCH (10:08)
[2024-04-12] MEDS: TAMSULOSIN HCL 0.4 MG CAP PO SCH (10:08)
[2024-04-13 05:45] VITALS: RESP 17; TEMP 98.2
[2024-04-13] MEDS: APIXABAN 5 MG TABLET PO SCH (09:05)
[2024-04-13] MEDS: TAMSULOSIN HCL 0.4 MG CAP PO SCH (09:05)
[2024-04-13] MEDS: TICAGRELOR 90 MG TABLET PO SCH (09:36)
[2024-04-13 10:07] VITALS: BP 123/80; PULSE 76
== END 2024-04-13 12:31 | disposition home or self-care (01) ==
LOC: JER 08:57 → JERBED 17:28 → J4W 18:54
PROVIDERS: ADMIT Internal Medicine; ATTEND Internal Medicine
DX: R07.89 Other chest pain (principal); M25.473 Effusion, unspecified ankle; I12.9 Hypertensive chronic kidney disease with stage 1 through stage 4 chronic kidney disease, or unspecified chronic kidney disease; N18.9 Chronic kidney disease, unspecified; I25.5 Ischemic cardiomyopathy; I25.10 Atherosclerotic heart disease of native coronary artery without angina pectoris; E78.5 Hyperlipidemia, unspecified; F17.200 Nicotine dependence, unspecified, uncomplicated; I48.0 Paroxysmal atrial fibrillation; Z79.01 Long term (current) use of anticoagulants; D70.9 Neutropenia, unspecified
CPT/HCPCS: 36415; 71045-TC-FY; 71275-TC; 73610-TC-RT-FY; 73630-TC-RT-FY; 80048; 80053; 83690; 83735; 84484; 85025; 85379; 85610; 85730; 93005; 93010; 93971-TC; 99285-25; G0378; Q9967

== ENCOUNTER 2024-08-24 01:54 | Emergency (ER) | payer OTHER ==
[2024-08-24 01:58] VITALS: TEMP 98.2; BMI 20.5
[2024-08-24] MEDS ORDERED: ASPIRIN 81 MG CHEWABLE TABLETS ONE (02:43)
[2024-08-24] MEDS ORDERED: HEPARIN NA (PORCINE) 5,000 UNITS/ML 1ML VIAL ONE (02:58)
[2024-08-24] MEDS: ASPIRIN 81 MG CHEWABLE TABLETS PO ONE (03:01)
[2024-08-24 03:03] LABS: BASO % 1.1 % (0-2.0); HEMATOCRIT 41.6 % (35.4-49); HEMOGLOBIN 13.6 GM/dL (11.7-16.9); LYMPH % 24.5 % (8-40); MCH 29.4 pg (25.7-33.7); MCHC 32.7 g/dl (32.0-35.9); MEAN CELL VOLUME 89.8 fl (80-96); MEAN PLT VOLUME 7.3 fl (7.5-11.1); MONO % 4.8 % (3.8-10.2); NEUT % 68.6 % (42.8-82.8); PLATELET COUNT 370 10^3/uL (134-434); RBC 4.63 M/mm3 (4.00-5.60); RDW 17.2 % (11.9-15.9); WHITE BLOOD COUNT 7.2 K/mm3 (4.0-10.0)
[2024-08-24] MEDS: HEPARIN NA (PORCINE) 5,000 UNITS/ML 1ML VIAL IVPUSH ONE (03:03)
[2024-08-24] MEDS ORDERED: NITROGLYCERIN SUBLINGUAL 1/150 0.4 MG TAB ONE (03:05)
[2024-08-24] MEDS: NITROGLYCERIN SUBLINGUAL 1/200 0.3 MG BTL SL ONE (03:08)
[2024-08-24] MEDS: NITROGLYCERIN SUBLINGUAL 1/150 0.4 MG TAB SL ONE (03:08)
[2024-08-24] MEDS: TICAGRELOR 60 MG TABLET PO ONE (03:15)
[2024-08-24 03:16] LABS: INR 0.97 (0.83-1.09)
[2024-08-24] MEDS: TICAGRELOR 90 MG TABLET PO ONE (03:16)
[2024-08-24] MEDS: HEPARIN INFUSION - 25,000 UNITS/500 ML INFUS.BAG IVPB SCH (03:17)
[2024-08-24 03:19] LABS: ACTIVATED PTT 36.3 SECONDS (25.2-36.5)
[2024-08-24 03:30] VITALS: RESP 17
[2024-08-24 03:30] LABS: POTASSIUM 4.2 mmol/L (3.5-5.1)
[2024-08-24 03:32] LABS: ALBUMIN 4.4 g/dl (3.4-5.0); CALCIUM 9.8 mg/dL (8.5-10.1)
[2024-08-24 03:33] LABS: BLOOD UREA NITROGEN 27.5 mg/dL (7-18)
[2024-08-24 03:36] LABS: CREATININE 1.5 mg/dL (0.55-1.3)
[2024-08-24 03:37] LABS: BILIRUBIN,TOTAL 0.4 mg/dL (0.2-1); TOT PROT 8.4 g/dl (6.4-8.2)
[2024-08-24 03:40] VITALS: BP 147/90; PULSE 82
[2024-08-24 13:45] LABS: HIV INTERPRETATION NEGATIVE (NEGATIVE)
== END 2024-08-24 03:40 | disposition short-term general hospital (02) ==
LOC: JER 01:54
PROC: 3E033GC Introduction of Other Therapeutic Substance into Peripheral Vein, Percutaneous Approach (ICD-10-PCS; principal; 2024-08-24)
DX: I21.3 ST elevation (STEMI) myocardial infarction of unspecified site (principal); R07.2 Precordial pain; I10 Essential (primary) hypertension; Z20.822 Contact with and (suspected) exposure to COVID-19
CPT/HCPCS: 0241U-QW; 36415; 71045-TC-FY; 80053; 84484; 85025; 85610; 85730; 86803; 86850; 86900; 86901; 87389; 93005; 93010; 99291; J1644

== ENCOUNTER 2024-09-06 06:24 | Emergency (ER) | payer OTHER ==
[2024-09-06 06:39] VITALS: RESP 16; TEMP 98.7; BMI 19.8
[2024-09-06 08:13] LABS: HEMOGLOBIN 10.9 GM/dL (11.7-16.9); MCH 29.5 pg (25.7-33.7); MCHC 33.2 g/dl (32.0-35.9); MEAN CELL VOLUME 88.8 fl (80-96); MEAN PLT VOLUME 6.9 fl (7.5-11.1); PLATELET COUNT 356 10^3/uL (134-434); RBC 3.71 M/mm3 (4.00-5.60); RDW 16.5 % (11.9-15.9); WHITE BLOOD COUNT 4.4 K/mm3 (4.0-10.0)
[2024-09-06 08:21] LABS: BLOOD UREA NITROGEN 31.1 mg/dL (7-18)
[2024-09-06 08:24] LABS: ALBUMIN 3.3 g/dl (3.4-5.0); CREATININE 1.1 mg/dL (0.55-1.3)
[2024-09-06 08:25] LABS: BILIRUBIN,TOTAL 0.2 mg/dL (0.2-1); TOT PROT 6.7 g/dl (6.4-8.2)
[2024-09-06 10:19] VITALS: BP 150/100; PULSE 87
== END 2024-09-06 10:08 | disposition home or self-care (01) ==
LOC: JER 06:24
DX: R07.89 Other chest pain (principal)
CPT/HCPCS: 36415; 71045-TC-FY; 80053; 84484; 85027; 93005; 93010; 99285-25

== ENCOUNTER 2024-10-20 20:26 | Observation (INO) | payer OTHER ==
[2024-10-20 20:33] VITALS: BMI 20.8
[2024-10-20] MEDS ORDERED: ACETAMINOPHEN INJECTION 100 ML ONE (20:56)
[2024-10-20 21:15] LABS: BASO % 0.6 % (0-2.0); EOS % 0.3 % (0-4.5); HEMATOCRIT 41.1 % (35.4-49); HEMOGLOBIN 13.5 GM/dL (11.7-16.9); LYMPH % 14.2 % (8-40); MCH 29.7 pg (25.7-33.7); MCHC 32.8 g/dl (32.0-35.9); MEAN CELL VOLUME 90.3 fl (80-96); MEAN PLT VOLUME 7.9 fl (7.5-11.1); MONO % 6.5 % (3.8-10.2); NEUT % 78.4 % (42.8-82.8); PLATELET COUNT 366 10^3/uL (134-434); RBC 4.55 M/mm3 (4.00-5.60); RDW 16.7 % (11.9-15.9)
[2024-10-20] MEDS: ACETAMINOPHEN 1000 MG/100 ML BAG IVPB ONE (21:15)
[2024-10-20 21:24] LABS: PROTHROMBIN TIME (PATIENT) 11.5 SEC (9.7-13.0)
[2024-10-20 21:27] LABS: ACTIVATED PTT 36.4 SECONDS (25.2-36.5)
[2024-10-20 21:34] LABS: POTASSIUM 4.7 mmol/L (3.5-5.1)
[2024-10-20 21:36] LABS: CALCIUM 10.3 mg/dL (8.5-10.1)
[2024-10-20 21:37] LABS: ALBUMIN 4.4 g/dl (3.4-5.0); BLOOD UREA NITROGEN 25.2 mg/dL (7-18)
[2024-10-20 21:40] LABS: CREATININE 1.5 mg/dL (0.55-1.3)
[2024-10-20 21:42] LABS: BILIRUBIN,TOTAL 0.7 mg/dL (0.2-1); TOT PROT 8.4 g/dl (6.4-8.2)
[2024-10-20] MEDS ORDERED: FAMOTIDINE 20 MG TABLET ONE (22:34)
[2024-10-20] MEDS ORDERED: ASPIRIN 81 MG CHEWABLE TABLETS ONE (22:49)
[2024-10-20] MEDS: ASPIRIN 81 MG CHEWABLE TABLETS PO ONE (22:51)
[2024-10-21 05:28] LABS: EPI CELLS 4 /uL (0-25.1); HYALINE CASTS 0 /uL (0-3.1); URINE BACTERIA 0 /uL (0-1359); URINE BILIRUBIN NEGATIVE (NEGATIVE); URINE COLOR YELLOW; URINE GLUCOSE (UA) NEGATIVE (NEGATIVE); URINE KETONE NEGATIVE (NEGATIVE); URINE LEUK ESTERASE TRACE (NEGATIVE); URINE NITRITE NEGATIVE (NEGATIVE); URINE PROTEIN NEGATIVE (NEGATIVE); URINE RBC 2 /uL (0-23.9); URINE UROBILINOGEN 0.2 mg/dL (0.2-1.0); URINE WBC 49 /uL (0-25.8)
[2024-10-21] MEDS: TAMSULOSIN HCL 0.4 MG CAP PO SCH (10:08)
[2024-10-21] MEDS: APIXABAN 5 MG TABLET PO SCH (10:08)
[2024-10-21] MEDS: TICAGRELOR 90 MG TABLET PO SCH (10:08)
[2024-10-21] MEDS: CARVEDILOL 12.5 MG TABLET (FP) PO SCH (10:08)
[2024-10-21] MEDS: EMPAGLIFLOZIN (JARDIANCE) 10 MG TABLET PO SCH (10:08)
[2024-10-21] MEDS: SPIRONOLACTONE 25 MG TABLET PO SCH (10:08)
[2024-10-21] MEDS: FINASTERIDE 5 MG TABLET (FP) PO SCH (10:08)
[2024-10-21] MEDS: NICOTINE 14 MG/24 HOURS TOPICAL PATCH TD SCH (10:09)
[2024-10-21 15:52] LABS: URINE APPEARANCE CLEAR
[2024-10-21] MEDS ORDERED: CYCLOBENZAPRINE HCL 5 MG TABLET PO PRN (17:31)
[2024-10-21] MEDS: ATORVASTATIN CA 80 MG TABLET (FP) PO SCH (21:55)
[2024-10-22 08:42] LABS: BASO % 1.1 % (0-2.0); EOS % 4.2 % (0-4.5); HEMATOCRIT 38.6 % (35.4-49); HEMOGLOBIN 12.5 GM/dL (11.7-16.9); LYMPH % 38.7 % (8-40); MCH 29.7 pg (25.7-33.7); MCHC 32.4 g/dl (32.0-35.9); MEAN CELL VOLUME 91.7 fl (80-96); MEAN PLT VOLUME 8.2 fl (7.5-11.1); MONO % 16.1 % (3.8-10.2); NEUT % 39.9 % (42.8-82.8); PLATELET COUNT 318 10^3/uL (134-434); RBC 4.21 M/mm3 (4.00-5.60); RDW 16.3 % (11.9-15.9); WHITE BLOOD COUNT 3.4 K/mm3 (4.0-10.0)
[2024-10-22 08:48] LABS: POTASSIUM 4.4 mmol/L (3.5-5.1)
[2024-10-22 09:01] LABS: BLOOD UREA NITROGEN 24.7 mg/dL (7-18); CALCIUM 9.4 mg/dL (8.5-10.1)
[2024-10-22 09:02] LABS: MAGNESIUM 2.2 mg/dL (1.8-2.4)
[2024-10-22 09:03] LABS: CREATININE 1.1 mg/dL (0.55-1.3); PHOSPHOROUS 4.2 mg/dL (2.5-4.9)
[2024-10-22 09:04] LABS: BILIRUBIN,TOTAL 0.5 mg/dL (0.2-1)
[2024-10-22 09:05] LABS: TOT PROT 6.5 g/dl (6.4-8.2)
[2024-10-22] MEDS: ACETAMINOPHEN 1000 MG/100 ML BAG IVPB PRN (09:06)
[2024-10-22] MEDS: LACTATED RINGERS SOLUTION 1,000 ML/1,000 ML INFUS.BAG IV SCH (09:08)
[2024-10-22 09:15] LABS: ALBUMIN 3.2 g/dl (3.4-5.0)
[2024-10-22 10:16] VITALS: PULSE 61
[2024-10-22 15:52] VITALS: BP 141/80; RESP 18; TEMP 96.9
== END 2024-10-22 18:32 | disposition home health service (06) ==
LOC: JER 20:26 → JERBED 22:19 → J4W 10-21 05:25
PROVIDERS: ADMIT Internal Medicine; ATTEND Internal Medicine
PROC: 3E033NZ Introduction of Analgesics, Hypnotics, Sedatives into Peripheral Vein, Percutaneous Approach (ICD-10-PCS; principal; 2024-10-20)
PROC: 3E0337Z Introduction of Electrolytic and Water Balance Substance into Peripheral Vein, Percutaneous Approach (ICD-10-PCS; 2024-10-20)
DX: I11.0 Hypertensive heart disease with heart failure (principal); M54.12 Radiculopathy, cervical region; N17.9 Acute kidney failure, unspecified; I25.5 Ischemic cardiomyopathy; I50.22 Chronic systolic (congestive) heart failure; E78.5 Hyperlipidemia, unspecified; Z95.5 Presence of coronary angioplasty implant and graft; I25.2 Old myocardial infarction; R31.9 Hematuria, unspecified; F17.210 Nicotine dependence, cigarettes, uncomplicated
CPT/HCPCS: 36415; 70450-TC; 71046-TC-FY; 72141-TC; 76775-TC; 80053; 81003; 82550; 82570; 83735; 83970; 84100; 84156; 84484; 85025; 85610; 85730; 93005; 93010; 96361; 96374; 96376; 97116-GP; 97161-GP; 99285-25; G0378; J0131

== ENCOUNTER 2024-11-04 23:14 | Observation (INO) | payer OTHER ==
[2024-11-04 23:23] VITALS: BMI 20.7
[2024-11-05 01:28] LABS: BASO % 0.7 % (0-2.0); EOS % 0.5 % (0-4.5); HEMATOCRIT 46.1 % (35.4-49); HEMOGLOBIN 15.1 GM/dL (11.7-16.9); LYMPH % 20.7 % (8-40); MCHC 32.7 g/dl (32.0-35.9); MEAN CELL VOLUME 91.6 fl (80-96); MEAN PLT VOLUME 8.3 fl (7.5-11.1); MONO % 5.7 % (3.8-10.2); NEUT % 72.4 % (42.8-82.8); PLATELET COUNT 369 10^3/uL (134-434); RBC 5.03 M/mm3 (4.00-5.60); RDW 15.8 % (11.9-15.9); WHITE BLOOD COUNT 6.6 K/mm3 (4.0-10.0)
[2024-11-05 01:40] LABS: URINE APPEARANCE CLEAR; URINE BILIRUBIN NEGATIVE (NEGATIVE); URINE COLOR YELLOW; URINE GLUCOSE (UA) 3+ (NEGATIVE); URINE KETONE NEGATIVE (NEGATIVE); URINE LEUK ESTERASE NEGATIVE (NEGATIVE); URINE NITRITE NEGATIVE (NEGATIVE); URINE PROTEIN NEGATIVE (NEGATIVE); URINE UROBILINOGEN 0.2 mg/dL (0.2-1.0)
[2024-11-05 01:44] LABS: INR 1.11 (0.83-1.09); PROTHROMBIN TIME (PATIENT) 12.5 SEC (9.7-13.0)
[2024-11-05 01:47] LABS: ACTIVATED PTT 43.5 SECONDS (25.2-36.5)
[2024-11-05 01:49] LABS: CALCIUM 10.2 mg/dL (8.5-10.1)
[2024-11-05 01:52] LABS: CREATININE 1.3 mg/dL (0.55-1.3); PHOSPHOROUS 4.9 mg/dL (2.5-4.9)
[2024-11-05 01:54] LABS: BILIRUBIN,TOTAL 0.5 mg/dL (0.2-1)
[2024-11-05 01:57] LABS: N-TERMINAL BNP 961.7 pg/ml (5-125)
[2024-11-05 02:21] LABS: ALBUMIN 4.4 g/dl (3.4-5.0); TOT PROT 8.9 g/dl (6.4-8.2)
[2024-11-05 02:41] LABS: HIV INTERPRETATION NEGATIVE (NEGATIVE)
[2024-11-05] MEDS ORDERED: hydrALAZINE HCL 20 MG/ML VIAL IVPUSH PRN (06:04)
[2024-11-05] MEDS ORDERED: ACETAMINOPHEN 500 MG TABLET (FP) PO PRN (06:18)
[2024-11-05] MEDS ORDERED: PATIENT'S OWN MEDICATION (NON-FORMULARY) (Diclofenac Sodium [Voltaren] 100 GM Gel..Gram.) TP PRN (06:18)
[2024-11-05] MEDS: hydrALAZINE HCL 20 MG/ML VIAL IVPUSH ONE (06:40)
[2024-11-05] MEDS: INSULIN ASPART SLIDING SCALE (NOVOLOG) 1 VIAL SQ SCH (07:23)
[2024-11-05 07:55] LABS: HEMOGLOBIN 13.4 GM/dL (11.7-16.9); MCH 29.8 pg (25.7-33.7); MCHC 33.6 g/dl (32.0-35.9); MEAN CELL VOLUME 88.6 fl (80-96); PLATELET COUNT 351 10^3/uL (134-434); RBC 4.51 M/mm3 (4.00-5.60); RDW 15.4 % (11.9-15.9); WHITE BLOOD COUNT 4.7 K/mm3 (4.0-10.0)
[2024-11-05 08:15] LABS: POTASSIUM 4.3 mmol/L (3.5-5.1)
[2024-11-05 08:18] LABS: CALCIUM 9.7 mg/dL (8.5-10.1)
[2024-11-05 08:19] LABS: ALBUMIN 3.8 g/dl (3.4-5.0); BLOOD UREA NITROGEN 35.6 mg/dL (7-18)
[2024-11-05 08:20] LABS: CREATININE 1.4 mg/dL (0.55-1.3)
[2024-11-05 08:22] LABS: TOT PROT 7.5 g/dl (6.4-8.2)
[2024-11-05 08:24] LABS: BILIRUBIN,TOTAL 0.3 mg/dL (0.2-1)
[2024-11-05] MEDS: SPIRONOLACTONE 25 MG TABLET PO SCH (09:05)
[2024-11-05] MEDS: TICAGRELOR 90 MG TABLET PO SCH (09:05)
[2024-11-05] MEDS: APIXABAN 5 MG TABLET PO SCH (09:05)
[2024-11-05] MEDS: ISOSORBIDE MONONITRATE 60 MG TAB.SR.24H (FP) PO SCH (09:06)
[2024-11-05] MEDS: CARVEDILOL 12.5 MG TABLET (FP) PO SCH (09:06)
[2024-11-05] MEDS: TAMSULOSIN HCL 0.4 MG CAP PO SCH (09:06)
[2024-11-05] MEDS: SACUBITRIL/VALSARTAN 24 MG-26 MG TABLET PO SCH (09:06)
[2024-11-05] MEDS: FINASTERIDE 5 MG TABLET (FP) PO SCH (09:06)
[2024-11-05] MEDS ORDERED: EMPAGLIFLOZIN (JARDIANCE) 10 MG TABLET PO SCH (10:00)
[2024-11-05] MEDS: REGADENOSON 0.4 MG/5 ML PRE-FILLED SYRINGE IVPUSH ONE (11:26)
[2024-11-05] MEDS: EMPAGLIFLOZIN (JARDIANCE) 10 MG TABLET PO SCH (12:32)
[2024-11-05] MEDS: EZETIMIBE 10 MG TABLET (FP) PO SCH (12:34)
[2024-11-05] MEDS: VANCOMYCIN/WATER FOR INJ (PEG) 1,000 MG/200 ML BAG IVPB SCH (14:33)
[2024-11-05] MEDS: VANCOMYCIN 1,000 MG in DEXTROSE 5%-WATER - 250 ML IVPB SCH (14:33)
[2024-11-05] MEDS ORDERED: VANCOMYCIN/WATER FOR INJ (PEG) 1,000 MG/200 ML BAG IVPB SCH (15:00)
[2024-11-05] MEDS: ATORVASTATIN CA 80 MG TABLET (FP) PO SCH (21:50)
[2024-11-06 08:28] LABS: HEMATOCRIT 37.8 % (35.4-49); HEMOGLOBIN 12.4 GM/dL (11.7-16.9); LYMPH % 39.8 % (8-40); MCH 29.8 pg (25.7-33.7); MCHC 32.9 g/dl (32.0-35.9); MEAN CELL VOLUME 90.7 fl (80-96); MEAN PLT VOLUME 8.2 fl (7.5-11.1); MONO % 11.5 % (3.8-10.2); NEUT % 44.7 % (42.8-82.8); PLATELET COUNT 335 10^3/uL (134-434); RBC 4.17 M/mm3 (4.00-5.60); RDW 15.2 % (11.9-15.9); WHITE BLOOD COUNT 3.5 K/mm3 (4.0-10.0)
[2024-11-06 08:53] LABS: POTASSIUM 4.1 mmol/L (3.5-5.1)
[2024-11-06 08:59] LABS: ALBUMIN 3.3 g/dl (3.4-5.0); BLOOD UREA NITROGEN 33.2 mg/dL (7-18); CALCIUM 8.9 mg/dL (8.5-10.1); MAGNESIUM 2.1 mg/dL (1.8-2.4)
[2024-11-06 09:01] LABS: CREATININE 1.3 mg/dL (0.55-1.3); PHOSPHOROUS 4.8 mg/dL (2.5-4.9)
[2024-11-06 09:04] LABS: BILIRUBIN,TOTAL 0.4 mg/dL (0.2-1); TOT PROT 6.6 g/dl (6.4-8.2)
[2024-11-06 09:18] VITALS: TEMP 98.8
[2024-11-06 15:54] VITALS: BP 120/86; PULSE 65; RESP 20
== END 2024-11-06 18:27 | disposition home or self-care (01) ==
LOC: JER 23:14 → JERBED 11-05 03:57 → INTOOBSV 11-05 06:24 → OBSVTOIN 11-05 06:24 → J4W 11-05 06:37
PROVIDERS: ADMIT Internal Medicine; ATTEND Internal Medicine
PROC: 3E033GC Introduction of Other Therapeutic Substance into Peripheral Vein, Percutaneous Approach (ICD-10-PCS; principal; 2024-11-05)
DX: R07.89 Other chest pain (principal); I16.0 Hypertensive urgency; I10 Essential (primary) hypertension; E78.5 Hyperlipidemia, unspecified; I25.10 Atherosclerotic heart disease of native coronary artery without angina pectoris; I25.5 Ischemic cardiomyopathy; I25.2 Old myocardial infarction; F17.210 Nicotine dependence, cigarettes, uncomplicated; R74.8 Abnormal levels of other serum enzymes; C61 Malignant neoplasm of prostate; Z95.5 Presence of coronary angioplasty implant and graft; Z79.01 Long term (current) use of anticoagulants
CPT/HCPCS: 36415; 71045-TC-FY; 73030-TC-LT-FY; 78452-TC; 80053; 80061; 81003; 82550; 82962; 83735; 83880; 84100; 84484; 85025; 85027; 85610; 85730; 86803; 86850; 86900; 86901; 87086; 87389; 93005; 93010; 93017; 93306-TC; 96374; 96375; 99285-25; A9502; G0378; J2785

== ENCOUNTER 2024-11-21 22:19 | Observation (INO) | payer OTHER ==
[2024-11-21] MEDS: ISOSORBIDE MONONITRATE 60 MG TAB.SR.24H (FP) PO ONE (23:00)
[2024-11-21] MEDS: CARVEDILOL 6.25 MG TABLET (FP) PO ONE (23:00)
[2024-11-21] MEDS: TICAGRELOR 60 MG TABLET PO ONE (23:00)
[2024-11-21] MEDS: ATORVASTATIN CA 80 MG TABLET (FP) PO ONE (23:00)
[2024-11-21] MEDS ORDERED: ISOSORBIDE MONONITRATE 60 MG TAB.SR.24H (FP) PO ONE (23:12)
[2024-11-21] MEDS ORDERED: TICAGRELOR 90 MG TABLET PO ONE (23:12)
[2024-11-21] MEDS ORDERED: CARVEDILOL 6.25 MG TABLET (FP) ONE (23:13)
[2024-11-21] MEDS ORDERED: ATORVASTATIN CA 80 MG TABLET (FP) ONE (23:13)
[2024-11-22 01:10] LABS: EOS % 1.3 % (0-4.5); HEMATOCRIT 38.4 % (35.4-49); HEMOGLOBIN 12.4 GM/dL (11.7-16.9); LYMPH % 33.2 % (8-40); MCH 29.4 pg (25.7-33.7); MCHC 32.3 g/dl (32.0-35.9); MEAN CELL VOLUME 90.9 fl (80-96); MEAN PLT VOLUME 7.6 fl (7.5-11.1); MONO % 7.9 % (3.8-10.2); NEUT % 56.6 % (42.8-82.8); PLATELET COUNT 291 10^3/uL (134-434); RBC 4.22 M/mm3 (4.00-5.60); RDW 16.1 % (11.9-15.9)
[2024-11-22 01:22] LABS: INR 0.93 (0.83-1.09); PROTHROMBIN TIME (PATIENT) 10.7 SEC (9.7-13.0)
[2024-11-22 01:25] LABS: ACTIVATED PTT 25.4 SECONDS (25.2-36.5)
[2024-11-22 01:31] LABS: POTASSIUM 5.8 mmol/L (3.5-5.1)
[2024-11-22 01:35] LABS: CALCIUM 8.7 mg/dL (8.5-10.1)
[2024-11-22 01:36] LABS: ALBUMIN 3.5 g/dl (3.4-5.0); BLOOD UREA NITROGEN 14.6 mg/dL (7-18)
[2024-11-22 01:39] LABS: CREATININE 0.9 mg/dL (0.55-1.3)
[2024-11-22 01:40] LABS: BILIRUBIN,TOTAL 0.3 mg/dL (0.2-1)
[2024-11-22 01:44] LABS: N-TERMINAL BNP 1225.5 pg/ml (5-125)
[2024-11-22 05:39] LABS: POTASSIUM 4.2 mmol/L (3.5-5.1)
[2024-11-22 05:41] LABS: CALCIUM 9.1 mg/dL (8.5-10.1)
[2024-11-22 05:42] LABS: ALBUMIN 3.4 g/dl (3.4-5.0); BLOOD UREA NITROGEN 14.3 mg/dL (7-18)
[2024-11-22 05:45] LABS: CREATININE 0.9 mg/dL (0.55-1.3)
[2024-11-22 05:47] LABS: BILIRUBIN,TOTAL 0.4 mg/dL (0.2-1); TOT PROT 6.8 g/dl (6.4-8.2)
[2024-11-22 07:44] LABS: BASO % 0.8 % (0-2.0); EOS % 1.9 % (0-4.5); HEMATOCRIT 33.4 % (35.4-49); HEMOGLOBIN 11.3 GM/dL (11.7-16.9); LYMPH % 30.3 % (8-40); MCH 30.3 pg (25.7-33.7); MCHC 33.9 g/dl (32.0-35.9); MEAN CELL VOLUME 89.4 fl (80-96); PLATELET COUNT 295 10^3/uL (134-434); RBC 3.74 M/mm3 (4.00-5.60); RDW 15.3 % (11.9-15.9)
[2024-11-22] MEDS ORDERED: TAMSULOSIN HCL 0.4 MG CAP ONE (09:06)
[2024-11-22] MEDS: TAMSULOSIN HCL 0.4 MG CAP PO SCH (09:06)
[2024-11-22] MEDS ORDERED: TICAGRELOR 90 MG TABLET PO ONE (11:28)
[2024-11-22] MEDS ORDERED: APIXABAN 5 MG TABLET ONE (11:28)
[2024-11-22] MEDS: EMPAGLIFLOZIN (JARDIANCE) 10 MG TABLET PO SCH (11:31)
[2024-11-22] MEDS: CARVEDILOL 12.5 MG TABLET (FP) PO SCH (11:31)
[2024-11-22] MEDS: TICAGRELOR 90 MG TABLET PO SCH (11:31)
[2024-11-22] MEDS: ISOSORBIDE MONONITRATE 60 MG TAB.SR.24H (FP) PO SCH (11:31)
[2024-11-22] MEDS: FINASTERIDE 5 MG TABLET (FP) PO SCH (11:31)
[2024-11-22] MEDS: APIXABAN 5 MG TABLET PO SCH (11:31)
[2024-11-22] MEDS: SACUBITRIL/VALSARTAN 24 MG-26 MG TABLET PO SCH (11:31)
[2024-11-22] MEDS: SPIRONOLACTONE 25 MG TABLET PO SCH (11:31)
[2024-11-22 16:17] VITALS: BMI 21.9
[2024-11-22] MEDS ORDERED: ACETAMINOPHEN 325 MG TABLET (FP) PO PRN (17:39)
[2024-11-22] MEDS: ATORVASTATIN CA 80 MG TABLET (FP) PO SCH (21:30)
[2024-11-22] MEDS ORDERED: ATORVASTATIN CA 80 MG TABLET (FP) PO SCH (22:00)
[2024-11-23 04:25] LABS: METHADONE, UR NEGATIVE (NEGATIVE)
[2024-11-23 04:26] LABS: PHENCYCLIDINE,URINE NEGATIVE (NEGATIVE)
[2024-11-23 05:56] LABS: COCAINE, UR POSITIVE (NEGATIVE); OPIATES, URI NEGATIVE (NEGATIVE); URINE AMPHETAMINES NEGATIVE (NEGATIVE); URINE BARBITURATES NEGATIVE (NEGATIVE); URINE BENZODIAZEPINES NEGATIVE (NEGATIVE)
[2024-11-23] MEDS: EMPAGLIFLOZIN (JARDIANCE) 10 MG TABLET PO SCH (06:23)
[2024-11-23] MEDS: FUROSEMIDE 40 MG/4 ML INJECTABLE VIAL IVPUSH ONE (11:21)
[2024-11-23] MEDS: MAGNESIUM 1GM/D5W - 1 GM/100 ML IVPB IVPB ONE (11:21)
[2024-11-23 12:40] LABS: MAGNESIUM 2.2 mg/dL (1.8-2.4)
[2024-11-23 12:44] LABS: PHOSPHOROUS 3.3 mg/dL (2.5-4.9)
[2024-11-24 04:49] VITALS: TEMP 98.2
[2024-11-24 09:18] VITALS: BP 125/82; PULSE 52; RESP 17
== END 2024-11-24 11:02 | disposition home or self-care (01) ==
LOC: JER 22:19 → JERBED 11-22 02:41 → J4W 11-22 14:50
PROVIDERS: ADMIT Internal Medicine; ATTEND Internal Medicine
PROC: 3E033GC Introduction of Other Therapeutic Substance into Peripheral Vein, Percutaneous Approach (ICD-10-PCS; principal; 2024-11-22)
DX: R07.89 Other chest pain (principal); I10 Essential (primary) hypertension; I48.91 Unspecified atrial fibrillation; I25.10 Atherosclerotic heart disease of native coronary artery without angina pectoris; I25.2 Old myocardial infarction; I25.5 Ischemic cardiomyopathy; E78.5 Hyperlipidemia, unspecified; Z85.46 Personal history of malignant neoplasm of prostate; Z79.01 Long term (current) use of anticoagulants; Z95.5 Presence of coronary angioplasty implant and graft
CPT/HCPCS: 36415; 71045-TC-FY; 80053; 80307; 82962; 83735; 83880; 84100; 84484; 85025; 85610; 85730; 86850; 86900; 86901; 93005; 93010; 93308; 96365; 96375; 99285-25; G0378

== ENCOUNTER 2025-03-08 06:25 | Emergency (ER) | payer OTHER ==
[2025-03-08 06:31] VITALS: RESP 18; BMI 21.1
[2025-03-08] MEDS ORDERED: TAMSULOSIN HCL 0.4 MG CAP ONE (08:24)
[2025-03-08 08:28] LABS: ABSOLUTE IMMATURE GRANULOCYTES 0.01 x10^3/uL (0.0-0.031); BASOPHILS # 0.04 x10^3/uL (0.01-0.08); EOSINOPHIL % 1.7 % (0.8-7.0); EOSINOPHILS # 0.07 x10^3/uL (0.04-0.54); HEMATOCRIT 36.5 % (40.1-51.0); HEMOGLOBIN 11.3 g/dL (13.7-17.5); MEAN CELL VOLUME 92.9 fl (79.0-92.2); MEAN PLT VOLUME 9.9 fl (9.4-12.4); MONOCYTE % 12.3 % (5.3-12.2); PLATELET COUNT 356 x10^3/uL (163-337); RDW 16.3 % (12.2-16.4)
[2025-03-08] MEDS: FINASTERIDE 5 MG TABLET (FP) PO SCH (08:31)
[2025-03-08] MEDS: TAMSULOSIN HCL 0.4 MG CAP PO SCH (08:31)
[2025-03-08 08:32] LABS: EPI CELLS 2 /uL (0-25.1); HYALINE CASTS 1 /uL (0-3.1); PH,URINE 7.5 (5.0-8.0); URINE APPEARANCE CLOUDY; URINE BACTERIA 7168 /uL (0-1359); URINE BILIRUBIN NEGATIVE (NEGATIVE); URINE COLOR YELLOW; URINE GLUCOSE (UA) NEGATIVE (NEGATIVE); URINE KETONE NEGATIVE (NEGATIVE); URINE LEUK ESTERASE 2+ (NEGATIVE); URINE NITRITE NEGATIVE (NEGATIVE); URINE PROTEIN 1+ (NEGATIVE); URINE RBC 21 /uL (0-23.9); URINE UROBILINOGEN 0.2 mg/dL (0.2-1.0); URINE WBC 416 /uL (0-25.8)
[2025-03-08 08:51] LABS: POTASSIUM 4.4 mmol/L (3.5-5.1)
[2025-03-08 08:53] LABS: CALCIUM 9.6 mg/dL (8.5-10.1)
[2025-03-08 08:54] LABS: ALBUMIN 3.4 g/dl (3.4-5.0); BLOOD UREA NITROGEN 15.4 mg/dL (7-18)
[2025-03-08 08:59] LABS: BILIRUBIN,TOTAL 0.4 mg/dL (0.2-1); TOT PROT 6.8 g/dl (6.4-8.2)
[2025-03-08] MEDS: CEFPODOXIME PROXETIL 200 MG TABLET [NF] PO ONE (10:44)
[2025-03-08 11:14] VITALS: BP 180/98; PULSE 74; TEMP 98.9
== END 2025-03-08 11:19 | disposition home or self-care (01) ==
LOC: JER 06:25
PROC: 0T9B70Z Drainage of Bladder with Drainage Device, Via Natural or Artificial Opening (ICD-10-PCS; principal; 2025-03-08)
DX: N40.1 Benign prostatic hyperplasia with lower urinary tract symptoms (principal); R33.8 Other retention of urine; N39.0 Urinary tract infection, site not specified; R14.0 Abdominal distension (gaseous); R30.0 Dysuria; R10.30 Lower abdominal pain, unspecified; R39.198 Other difficulties with micturition
CPT/HCPCS: 36415; 80053; 81003; 85025; 99284-25

== ENCOUNTER 2025-03-10 21:53 | Emergency (ER) | payer OTHER ==
[2025-03-10 22:12] VITALS: BMI 20.7
[2025-03-10 23:25] LABS: ABSOLUTE IMMATURE GRANULOCYTES 0.01 x10^3/uL (0.0-0.031); BASOPHILS # 0.04 x10^3/uL (0.01-0.08); EOSINOPHIL % 1.8 % (0.8-7.0); EOSINOPHILS # 0.08 x10^3/uL (0.04-0.54); HEMATOCRIT 36.1 % (40.1-51.0); HEMOGLOBIN 11.3 g/dL (13.7-17.5); MCHC 31.3 g/dl (32.3-36.5); MEAN CELL VOLUME 91.6 fl (79.0-92.2); MEAN PLT VOLUME 9.3 fl (9.4-12.4); MONOCYTE # 0.55 x10^3/uL (0.30-0.82); MONOCYTE % 12.2 % (5.3-12.2); PLATELET COUNT 361 x10^3/uL (163-337); RDW 15.9 % (12.2-16.4)
[2025-03-10 23:44] LABS: URINE APPEARANCE BLOODY; URINE COLOR RED
[2025-03-10 23:45] LABS: URINE BILIRUBIN NEGATIVE (NEGATIVE); URINE GLUCOSE (UA) 100 (NEGATIVE)
[2025-03-10 23:46] LABS: URINE PROTEIN TRACE (NEGATIVE)
[2025-03-10 23:47] LABS: POTASSIUM 4.2 mmol/L (3.5-5.1)
[2025-03-10 23:49] LABS: ALBUMIN 3.3 g/dl (3.4-5.0); BLOOD UREA NITROGEN 21.4 mg/dL (7-18); CALCIUM 8.9 mg/dL (8.5-10.1)
[2025-03-10 23:53] LABS: CREATININE 1.3 mg/dL (0.55-1.3)
[2025-03-10 23:54] LABS: BILIRUBIN,TOTAL 0.3 mg/dL (0.2-1); TOT PROT 6.8 g/dl (6.4-8.2)
[2025-03-11] MEDS ORDERED: cefTRIAXone SODIUM 1 GM VIAL ONE (00:04)
[2025-03-11] MEDS: CEFTRIAXONE 1 GM in DEXTROSE 5%-WATER - 100 ML IVPB ONE (00:05)
[2025-03-11 00:25] VITALS: BP 151/99; PULSE 71; RESP 16; TEMP 98.2
== END 2025-03-11 00:35 | disposition home or self-care (01) ==
LOC: JER 21:53
DX: N30.01 Acute cystitis with hematuria (principal); R30.0 Dysuria
CPT/HCPCS: 36415; 76857; 80053; 81003; 85025; 87086; 93005; 93010; 96374; 99285-25

== ENCOUNTER 2025-03-23 09:16 | Emergency (ER) | payer OTHER ==
[2025-03-23 09:26] VITALS: BP 156/94; PULSE 76; RESP 20; TEMP 97.9; BMI 21.1
[2025-03-23] MEDS ORDERED: ACETAMINOPHEN 325 MG TABLET (FP) ONE (11:02)
[2025-03-23] MEDS ORDERED: LIDOCAINE 4% PATCH TP ONE (11:02)
[2025-03-23] MEDS: LIDOCAINE 4% PATCH TP ONE (11:06)
[2025-03-23] MEDS: ACETAMINOPHEN 325 MG TABLET (FP) PO ONE (11:07)
[2025-03-23] MEDS ORDERED: LIDOCAINE PATCH REMOVAL MC SCH (22:00)
== END 2025-03-23 12:51 | disposition home or self-care (01) ==
LOC: JERFT 09:16 → JER 09:16
DX: M54.2 Cervicalgia (principal); R00.2 Palpitations
CPT/HCPCS: 93005; 93010; 99283-25

== ENCOUNTER 2025-03-28 10:13 | Emergency (ER) | payer OTHER ==
[2025-03-28 10:26] VITALS: BMI 21.1
[2025-03-28] MEDS ORDERED: ACETAMINOPHEN 325 MG TABLET (FP) ONE (11:28)
[2025-03-28] MEDS ORDERED: CycloBENZAprine HCL 5 MG TABLET ONE (11:28)
[2025-03-28] MEDS ORDERED: LIDOCAINE 4% PATCH TP ONE (11:29)
[2025-03-28] MEDS: ACETAMINOPHEN 500 MG TABLET (FP) PO ONE (11:41)
[2025-03-28] MEDS: CycloBENZAprine HCL 10 MG TABLET (FP) PO ONE (11:41)
[2025-03-28] MEDS: LIDOCAINE 5% TOPICAL PATCH TP ONE (11:41)
[2025-03-28 17:13] VITALS: PULSE 80
[2025-03-28 18:37] VITALS: BP 167/105; RESP 18; TEMP 97.9
[2025-03-28] MEDS ORDERED: LIDOCAINE PATCH REMOVAL MC SCH (22:00)
== END 2025-03-28 19:04 | disposition home or self-care (01) ==
LOC: JER 10:13
DX: M54.12 Radiculopathy, cervical region (principal)
CPT/HCPCS: 72125-TC; 99284-25

== ENCOUNTER 2025-05-19 16:08 | Observation (INO) | payer OTHER ==
[2025-05-19 19:09] LABS: ABSOLUTE IMMATURE GRANULOCYTES 0.02 x10^3/uL (0.0-0.031); BASOPHILS # 0.04 x10^3/uL (0.01-0.08); EOSINOPHIL % 0.1 % (0.8-7.0); EOSINOPHILS # 0.01 x10^3/uL (0.04-0.54); MCHC 32.5 g/dl (32.3-36.5); MEAN CELL VOLUME 87.6 fl (79.0-92.2); MEAN PLT VOLUME 9.4 fl (9.4-12.4); MONOCYTE # 0.49 x10^3/uL (0.30-0.82); MONOCYTE % 6.7 % (5.3-12.2); RDW 15.5 % (12.2-16.4)
[2025-05-19 19:12] LABS: EPI CELLS 1 /uL (0-25.1); HYALINE CASTS 7 /uL (0-3.1); URINE APPEARANCE TURBID; URINE BILIRUBIN 2+ (NEGATIVE); URINE COLOR RED; URINE GLUCOSE (UA) NEGATIVE (NEGATIVE); URINE KETONE NEGATIVE (NEGATIVE); URINE LEUK ESTERASE 2+ (NEGATIVE); URINE NITRITE POSITIVE (NEGATIVE); URINE PROTEIN 2+ (NEGATIVE); URINE UROBILINOGEN 0.2 mg/dL (0.2-1.0); URINE WBC 5 /uL (0-25.8)
[2025-05-19 19:32] LABS: CO2 25 mmol/L (21-32); GLUCOSE,RANDOM 81 mg/dL (74-106)
[2025-05-19] MEDS ORDERED: CEFTRIAXONE 1 GM/50 ML BAG ONE (19:33)
[2025-05-19 19:35] LABS: CREATININE 1.3 mg/dL (0.55-1.3); SGOT/AST 49 U/L (15-37); SGPT/ALT 31 U/L (13-61)
[2025-05-19 19:37] LABS: TOT PROT 8.4 g/dl (6.4-8.2)
[2025-05-19 19:38] LABS: ALK PHOS 145 U/L (45-117)
[2025-05-19] MEDS: CEFTRIAXONE 1 GM in DEXTROSE 5%-WATER - 100 ML IVPB ONE (19:59)
[2025-05-19 20:05] LABS: URINE BACTERIA 109.4 /uL (0-1359); URINE RBC 517.7 /uL (0-23.9)
[2025-05-19 20:30] LABS: HCV DIAGNOSTIC IN-HOUSE W/RFLX NON-REACTIVE (NONREACTIVE)
[2025-05-19 20:30] LABS: CO2 24.0 mmol/L (21-32); GLUCOSE,RANDOM 112.0 mg/dL (74-106)
[2025-05-19 20:31] LABS: HIV INTERPRETATION NEGATIVE (NEGATIVE)
[2025-05-19 20:33] LABS: CREATININE 1.2 mg/dL (0.55-1.3)
[2025-05-19 23:56] LABS: PHENCYCLIDINE,URINE NEGATIVE (NEGATIVE)
[2025-05-19 23:58] LABS: METHADONE, UR NEGATIVE (NEGATIVE); URINE AMPHETAMINES NEGATIVE (NEGATIVE); URINE BENZODIAZEPINES NEGATIVE (NEGATIVE)
[2025-05-20 00:22] LABS: COCAINE, UR POSITIVE (NEGATIVE); OPIATES, URI NEGATIVE (NEGATIVE); URINE BARBITURATES NEGATIVE (NEGATIVE)
[2025-05-20 00:30] VITALS: BMI 20.4
[2025-05-20] MEDS: SODIUM CHLORIDE 1,000 ML IV SCH (05:46)
[2025-05-20 08:41] LABS: ABSOLUTE IMMATURE GRANULOCYTES 0.01 x10^3/uL (0.0-0.031); BASOPHILS # 0.03 x10^3/uL (0.01-0.08); EOSINOPHIL % 0.9 % (0.8-7.0); EOSINOPHILS # 0.05 x10^3/uL (0.04-0.54); MCHC 31.9 g/dl (32.3-36.5); MEAN CELL VOLUME 87.5 fl (79.0-92.2); MEAN PLT VOLUME 9.7 fl (9.4-12.4); MONOCYTE # 0.72 x10^3/uL (0.30-0.82); MONOCYTE % 13.6 % (5.3-12.2); RDW 15.2 % (12.2-16.4)
[2025-05-20 11:13] LABS: CO2 28.0 mmol/L (21-32); GLUCOSE,RANDOM 77.0 mg/dL (74-106)
[2025-05-20 11:17] LABS: CREATININE 1.2 mg/dL (0.55-1.3); SGOT/AST 24.0 U/L (15-37); SGPT/ALT 24.0 U/L (13-61); TOT PROT 6.7 g/dl (6.4-8.2)
[2025-05-20 11:18] LABS: ALK PHOS 123.0 U/L (45-117)
[2025-05-20] MEDS: CEFAZOLIN 2 GM/D5W 2 GM/50 ML ML IVPB SCH (12:04)
[2025-05-20] MEDS: CARVEDILOL 6.25 MG TABLET (FP) PO SCH (21:36)
[2025-05-20] MEDS: TAMSULOSIN HCL 0.4 MG CAP PO SCH (21:36)
[2025-05-20] MEDS: SACUBITRIL/VALSARTAN 24 MG-26 MG TABLET PO SCH (21:36)
[2025-05-20] MEDS: ATORVASTATIN CA 80 MG TABLET (FP) PO SCH (21:36)
[2025-05-21 08:23] LABS: MCHC 32.2 g/dl (32.3-36.5); MEAN CELL VOLUME 88.1 fl (79.0-92.2); MEAN PLT VOLUME 9.3 fl (9.4-12.4); RDW 15.1 % (12.2-16.4)
[2025-05-21 09:01] LABS: GLUCOSE,RANDOM 113.0 mg/dL (74-106)
[2025-05-21 09:02] LABS: CO2 26.0 mmol/L (21-32)
[2025-05-21 09:04] LABS: CREATININE 1.1 mg/dL (0.55-1.3)
[2025-05-21 09:05] LABS: SGOT/AST 16.0 U/L (15-37); SGPT/ALT 17.0 U/L (13-61)
[2025-05-21 09:07] LABS: ALK PHOS 114.0 U/L (45-117); TOT PROT 6.2 g/dl (6.4-8.2)
[2025-05-21] MEDS: FINASTERIDE 5 MG TABLET (FP) PO SCH (09:30)
[2025-05-21] MEDS: FUROSEMIDE 20 MG TABLET (FP) PO SCH (09:30)
[2025-05-21] MEDS: ISOSORBIDE MONONITRATE 60 MG TAB.SR.24H (FP) PO SCH (09:30)
[2025-05-22] MEDS: ACETAMINOPHEN 325 MG TABLET (FP) PO ONE (06:02)
[2025-05-22] MEDS ORDERED: ACETAMINOPHEN 325 MG TABLET (FP) PO PRN (15:23)
[2025-05-22] MEDS: ACETAMINOPHEN 1000 MG/100 ML BAG IVPB PRN (15:31)
[2025-05-22] MEDS: CEFAZOLIN SODIUM 2 GM in DEXTROSE 5%-WATER 100 ML IVPB SCH (17:47)
[2025-05-23 08:24] LABS: ABSOLUTE IMMATURE GRANULOCYTES 0.02 x10^3/uL (0.0-0.031); BASOPHILS # 0.02 x10^3/uL (0.01-0.08); EOSINOPHIL % 1.4 % (0.8-7.0); EOSINOPHILS # 0.08 x10^3/uL (0.04-0.54); MCHC 32.6 g/dl (32.3-36.5); MEAN CELL VOLUME 88.4 fl (79.0-92.2); MEAN PLT VOLUME 9.1 fl (9.4-12.4); MONOCYTE # 0.73 x10^3/uL (0.30-0.82); MONOCYTE % 12.5 % (5.3-12.2); RDW 15.1 % (12.2-16.4)
[2025-05-23 08:38] LABS: INR 1.13 (0.83-1.09); PROTHROMBIN TIME (PATIENT) 12.4 SEC (9.7-13.0)
[2025-05-23 09:05] LABS: CO2 28.0 mmol/L (21-32); GLUCOSE,RANDOM 104.0 mg/dL (74-106)
[2025-05-23 09:09] LABS: CREATININE 1.0 mg/dL (0.55-1.3)
[2025-05-23] MEDS: ACETAMINOPHEN 325 MG TABLET (FP) PO PRN ×2 (10:02→17:25)
[2025-05-23] MEDS ORDERED: LIDOCAINE HCL/PF 2% SDV 5ML VIAL ONE (10:51)
[2025-05-23] MEDS ORDERED: PROPOFOL 20 ML ONE (10:51)
[2025-05-23] MEDS ORDERED: MIDAZOLAM HCL 2 MG/2 ML SINGLE DOSE VIAL ONE (10:51)
[2025-05-23] MEDS ORDERED: LIDOCAINE HCL 2% JELLY 11 ML TP ONE (11:04)
[2025-05-23] MEDS: LACTATED RINGERS SOLUTION 1,000 ML IV SCH (11:26)
[2025-05-23] MEDS ORDERED: PROMETHAZINE HCL 25 MG/1 ML VIAL IVPB PRN (11:33)
[2025-05-23] MEDS ORDERED: ONDANSETRON 4 MG/2 ML VIAL IVPUSH PRN (11:33)
[2025-05-23 12:42] VITALS: RESP 18
[2025-05-23] MEDS: CEFAZOLIN SODIUM 2 GM in DEXTROSE 5%-WATER 100 ML IVPB SCH (17:16)
[2025-05-23] MEDS: ACETAMINOPHEN 1000 MG/100 ML BAG IVPB ONE (19:43)
[2025-05-23] MEDS: CARVEDILOL 6.25 MG TABLET (FP) PO SCH (22:12)
[2025-05-23] MEDS: TAMSULOSIN HCL 0.4 MG CAP PO SCH (22:12)
[2025-05-23] MEDS: ATORVASTATIN CA 80 MG TABLET (FP) PO SCH (22:12)
[2025-05-23] MEDS: SACUBITRIL/VALSARTAN 24 MG-26 MG TABLET PO SCH (22:12)
[2025-05-24] MEDS: ISOSORBIDE MONONITRATE 60 MG TAB.SR.24H (FP) PO SCH (09:20)
[2025-05-24] MEDS: SPIRONOLACTONE 25 MG TABLET PO SCH (09:20)
[2025-05-24] MEDS: FINASTERIDE 5 MG TABLET (FP) PO SCH (09:22)
[2025-05-24] MEDS: FUROSEMIDE 20 MG TABLET (FP) PO SCH (09:22)
[2025-05-24 09:34] LABS: MCHC 31.8 g/dl (32.3-36.5); MEAN CELL VOLUME 88.2 fl (79.0-92.2); MEAN PLT VOLUME 9.9 fl (9.4-12.4); RDW 15.2 % (12.2-16.4)
[2025-05-24 10:46] LABS: CO2 27.0 mmol/L (21-32)
[2025-05-24 10:47] LABS: GLUCOSE,RANDOM 104.0 mg/dL (74-106)
[2025-05-24 10:50] LABS: CREATININE 1.0 mg/dL (0.55-1.3)
[2025-05-24] MEDS: AMOXICILLIN 500 MG CAPSULE (FP) PO SCH (14:44)
[2025-05-24] MEDS: POLYETHYLENE GLYCOL (HEALTHYLAX) 3350 17 GM PACKET PO SCH (16:58)
[2025-05-25 10:48] VITALS: BP 132/78; PULSE 66; TEMP 98.3
== END 2025-05-25 11:09 | disposition home or self-care (01) ==
LOC: JER 16:08 → J6S 20:11
PROVIDERS: ADMIT Internal Medicine; ATTEND Internal Medicine
PROC: 3E03329 Introduction of Other Anti-infective into Peripheral Vein, Percutaneous Approach (ICD-10-PCS; 2025-05-19)
PROC: 3E033NZ Introduction of Analgesics, Hypnotics, Sedatives into Peripheral Vein, Percutaneous Approach (ICD-10-PCS; 2025-05-19)
PROC: 3E0337Z Introduction of Electrolytic and Water Balance Substance into Peripheral Vein, Percutaneous Approach (ICD-10-PCS; 2025-05-19)
PROC: 0TJB8ZZ Inspection of Bladder, Via Natural or Artificial Opening Endoscopic (ICD-10-PCS; principal; 2025-05-23 13:30)
DX: R31.0 Gross hematuria (principal); N40.0 Benign prostatic hyperplasia without lower urinary tract symptoms; N13.6 Pyonephrosis; I25.10 Atherosclerotic heart disease of native coronary artery without angina pectoris; D64.9 Anemia, unspecified; F14.90 Cocaine use, unspecified, uncomplicated; F12.90 Cannabis use, unspecified, uncomplicated; I42.9 Cardiomyopathy, unspecified; I50.20 Unspecified systolic (congestive) heart failure; I16.0 Hypertensive urgency; I48.0 Paroxysmal atrial fibrillation; B95.1 Streptococcus, group B, as the cause of diseases classified elsewhere; E78.00 Pure hypercholesterolemia, unspecified; Z79.01 Long term (current) use of anticoagulants; C61 Malignant neoplasm of prostate; R33.9 Retention of urine, unspecified; Z95.5 Presence of coronary angioplasty implant and graft; C79.51 Secondary malignant neoplasm of bone; Z72.0 Tobacco use
CPT/HCPCS: 36415; 76775-TC; 76856-TC; 80048; 80053; 80307; 81003; 83735; 84100; 84153; 85025; 85027; 85610; 86803; 87077; 87086; 87389; 94760; 96361; 96365; 96366; 96367; 96375; 99285-25; G0378

== ENCOUNTER 2025-06-08 23:10 | Emergency (ER) | payer OTHER ==
[2025-06-08 23:25] VITALS: BMI 23.5
[2025-06-09] MEDS ORDERED: ACETAMINOPHEN INJECTION 100 ML ONE (00:01)
[2025-06-09] MEDS: ACETAMINOPHEN 1000 MG/100 ML BAG IVPB ONE (00:28)
[2025-06-09] MEDS ORDERED: FAMOTIDINE 20 MG/50 ML IVPB 20 MG/50 ML MG IVPB ONE (00:29)
[2025-06-09] MEDS ORDERED: ONDANSETRON 4 MG/2 ML VIAL ONE (00:29)
[2025-06-09] MEDS: ONDANSETRON 4 MG/2 ML VIAL IVPUSH ONE (00:31)
[2025-06-09] MEDS: FAMOTIDINE 20 MG/50 ML IVPB 20 MG/50 ML MG IVPB ONE (00:32)
[2025-06-09 01:45] VITALS: BP 160/97; PULSE 71; RESP 18; TEMP 98.2
[2025-06-09 01:55] LABS: ABSOLUTE IMMATURE GRANULOCYTES 0.01 x10^3/uL (0.0-0.031); BASOPHILS # 0.05 x10^3/uL (0.01-0.08); EOSINOPHIL % 1.0 % (0.8-7.0); EOSINOPHILS # 0.04 x10^3/uL (0.04-0.54); MCHC 31.6 g/dl (32.3-36.5); MEAN CELL VOLUME 89.6 fl (79.0-92.2); MEAN PLT VOLUME 9.0 fl (9.4-12.4); MONOCYTE # 0.25 x10^3/uL (0.30-0.82); MONOCYTE % 6.1 % (5.3-12.2); RDW 16.1 % (12.2-16.4)
[2025-06-09 02:17] LABS: CO2 27.0 mmol/L (21-32); GLUCOSE,RANDOM 86.0 mg/dL (74-106)
[2025-06-09 02:19] LABS: SGPT/ALT 25.0 U/L (13-61)
[2025-06-09 02:20] LABS: CREATININE 1.4 mg/dL (0.55-1.3); SGOT/AST 21.0 U/L (15-37)
[2025-06-09 02:21] LABS: TOT PROT 8.4 g/dl (6.4-8.2)
[2025-06-09 02:22] LABS: ALK PHOS 124.0 U/L (45-117); N-TERMINAL BNP 338.3 pg/ml (5-125)
[2025-06-09] MEDS ORDERED: AZITHROMYCIN 500 MG TABLET ONE (02:58)
[2025-06-09] MEDS ORDERED: AMOXICILLIN 500 MG CAPSULE (FP) ONE (02:58)
[2025-06-09] MEDS: AMOXICILLIN 500 MG CAPSULE (FP) PO ONE (03:01)
[2025-06-09] MEDS: AZITHROMYCIN 500 MG TABLET PO ONE (03:01)
[2025-06-09 03:06] LABS: HIV INTERPRETATION NEGATIVE (NEGATIVE)
[2025-06-09 06:26] LABS: HCV DIAGNOSTIC IN-HOUSE W/RFLX NON-REACTIVE (NONREACTIVE)
== END 2025-06-09 06:12 | disposition home or self-care (01) ==
LOC: JER 23:10
PROC: 3E033GC Introduction of Other Therapeutic Substance into Peripheral Vein, Percutaneous Approach (ICD-10-PCS; principal; 2025-06-08)
PROC: 3E033GC Introduction of Other Therapeutic Substance into Peripheral Vein, Percutaneous Approach (ICD-10-PCS; 2025-06-09)
PROC: 3E033GC Introduction of Other Therapeutic Substance into Peripheral Vein, Percutaneous Approach (ICD-10-PCS; 2025-06-09)
DX: J18.9 Pneumonia, unspecified organism (principal); R07.9 Chest pain, unspecified; R05.9 Cough, unspecified
CPT/HCPCS: 36415; 71045-TC-FY; 80053; 83690; 83735; 83880; 84484; 85025; 86803; 87389; 93005; 93010; 99285-25

== ENCOUNTER 2025-06-26 23:19 | Observation (INO) | payer OTHER ==
[2025-06-27 00:49] LABS: MCHC 31.8 g/dl (32.3-36.5); MEAN CELL VOLUME 89.0 fl (79.0-92.2); MEAN PLT VOLUME 9.7 fl (9.4-12.4); RDW 16.4 % (12.2-16.4)
[2025-06-27 00:57] LABS: INR 1.18 (0.83-1.09); PROTHROMBIN TIME (PATIENT) 13.0 SEC (9.7-13.0)
[2025-06-27 01:00] LABS: ACTIVATED PTT 32.6 SECONDS (25.2-36.5)
[2025-06-27 01:12] LABS: CO2 30.0 mmol/L (21-32); GLUCOSE,RANDOM 78.0 mg/dL (74-106)
[2025-06-27 01:15] LABS: CREATININE 1.5 mg/dL (0.55-1.3); SGOT/AST 68.0 U/L (15-37); SGPT/ALT 36.0 U/L (13-61)
[2025-06-27 01:16] LABS: TOT PROT 6.8 g/dl (6.4-8.2)
[2025-06-27 01:18] LABS: ALK PHOS 114.0 U/L (45-117)
[2025-06-27] MEDS ORDERED: ACETAMINOPHEN 1000 MG/100 ML BAG IVPB PRN (05:24)
[2025-06-27] MEDS ORDERED: morphine CARPU-JECT 2 MG/1 ML DISP.SYRIN IM PRN (05:32)
[2025-06-27] MEDS ORDERED: ALBUTEROL SO4 0.083% IH SOL 2.5 MG/3 ML VIAL.NEB. NEB PRN (05:41)
[2025-06-27] MEDS ORDERED: MORPHINE SULFATE 2 MG/ML SYRINGE ONE (05:53)
[2025-06-27] MEDS ORDERED: ASPIRIN 81 MG CHEWABLE TABLETS ONE (05:53)
[2025-06-27] MEDS: morphine CARPU-JECT 2 MG/1 ML DISP.SYRIN IVPUSH ONE (06:02)
[2025-06-27] MEDS: ASPIRIN 81 MG CHEWABLE TABLETS PO SCH (06:02)
[2025-06-27] MEDS: NITROGLYCERIN SUBLINGUAL 1/150 0.4 MG TAB SL ONE (06:06)
[2025-06-27 06:14] LABS: CO2 30 mmol/L (21-32); GLUCOSE,RANDOM 152 mg/dL (74-106)
[2025-06-27 06:18] LABS: CREATININE 1.4 mg/dL (0.55-1.3); SGOT/AST 55 U/L (15-37); SGPT/ALT 31 U/L (13-61)
[2025-06-27 06:20] LABS: ALK PHOS 104 U/L (45-117); TOT PROT 6.1 g/dl (6.4-8.2)
[2025-06-27 06:29] LABS: MCHC 32.7 g/dl (32.3-36.5); MEAN CELL VOLUME 87.8 fl (79.0-92.2); MEAN PLT VOLUME 9.9 fl (9.4-12.4); RDW 16.3 % (12.2-16.4)
[2025-06-27] MEDS: FUROSEMIDE 20 MG TABLET (FP) PO SCH (09:05)
[2025-06-27] MEDS: APIXABAN 5 MG TABLET PO SCH (09:06)
[2025-06-27] MEDS: TAMSULOSIN HCL 0.4 MG CAP PO SCH (09:06)
[2025-06-27] MEDS: ISOSORBIDE MONONITRATE 60 MG TAB.SR.24H (FP) PO SCH (09:06)
[2025-06-27] MEDS: CLOPIDOGREL BISULFATE 75 MG TABLET (FP) PO SCH (09:06)
[2025-06-27] MEDS: FINASTERIDE 5 MG TABLET (FP) PO SCH (09:06)
[2025-06-27] MEDS: SPIRONOLACTONE 25 MG TABLET PO SCH (09:06)
[2025-06-27] MEDS: SACUBITRIL/VALSARTAN 24 MG-26 MG TABLET PO SCH (09:06)
[2025-06-27] MEDS: CARVEDILOL 6.25 MG TABLET (FP) PO SCH (09:06)
[2025-06-27] MEDS: EMPAGLIFLOZIN (JARDIANCE) 10 MG TABLET PO SCH (09:06)
[2025-06-27] MEDS: ATORVASTATIN CA 80 MG TABLET (FP) PO SCH (21:13)
[2025-06-28 06:50] LABS: ABSOLUTE IMMATURE GRANULOCYTES 0.01 x10^3/uL (0.0-0.031); BASOPHILS # 0.03 x10^3/uL (0.01-0.08); EOSINOPHIL % 4.5 % (0.8-7.0); EOSINOPHILS # 0.19 x10^3/uL (0.04-0.54); MCHC 32.1 g/dl (32.3-36.5); MEAN CELL VOLUME 87.7 fl (79.0-92.2); MEAN PLT VOLUME 9.7 fl (9.4-12.4); MONOCYTE # 0.42 x10^3/uL (0.30-0.82); MONOCYTE % 10.0 % (5.3-12.2); RDW 16.1 % (12.2-16.4)
[2025-06-28] MEDS: PANTOPRAZOLE 40 MG TABLET PO SCH (09:27)
[2025-06-28 10:23] LABS: GLUCOSE,RANDOM 102 mg/dL (74-106)
[2025-06-28 10:24] LABS: CO2 25 mmol/L (21-32); TOT PROT 5.7 g/dl (6.4-8.2)
[2025-06-28 10:26] LABS: ALK PHOS 92 U/L (40-150)
[2025-06-28 10:29] LABS: CREATININE 1.12 mg/dL (0.55-1.3); SGOT/AST 38 U/L (5-34); SGPT/ALT 24 U/L (0-55)
[2025-06-28 12:12] LABS: IRON SERUM 29 ug/dL (50-175)
[2025-06-28 14:58] VITALS: BMI 22.4
[2025-06-29 07:23] LABS: MCHC 31.8 g/dl (32.3-36.5); MEAN CELL VOLUME 88.7 fl (79.0-92.2); MEAN PLT VOLUME 9.5 fl (9.4-12.4); RDW 16.1 % (12.2-16.4)
[2025-06-29 07:46] LABS: GLUCOSE,RANDOM 94.0 mg/dL (74-106); TOT PROT 5.9 g/dl (6.4-8.2)
[2025-06-29 07:47] LABS: CO2 27.0 mmol/L (21-32)
[2025-06-29 07:49] LABS: ALK PHOS 94.0 U/L (40-150)
[2025-06-29 07:52] LABS: CREATININE 1.06 mg/dL (0.55-1.3); SGOT/AST 32.0 U/L (5-34)
[2025-06-29 08:15] LABS: SGPT/ALT 22.0 U/L (0-55)
[2025-06-30 07:32] LABS: MCHC 32.1 g/dl (32.3-36.5); MEAN CELL VOLUME 88.6 fl (79.0-92.2); MEAN PLT VOLUME 9.5 fl (9.4-12.4); RDW 16.0 % (12.2-16.4)
[2025-06-30 07:45] LABS: GLUCOSE,RANDOM 90.0 mg/dL (74-106)
[2025-06-30 07:46] LABS: CO2 25.0 mmol/L (21-32); TOT PROT 6.3 g/dl (6.4-8.2)
[2025-06-30 07:48] LABS: ALK PHOS 96.0 U/L (40-150)
[2025-06-30 07:51] LABS: CREATININE 1.09 mg/dL (0.55-1.3); SGOT/AST 27.0 U/L (5-34); SGPT/ALT 21.0 U/L (0-55)
[2025-06-30] MEDS: MAGNESIUM HYDROX 2400MG/30ML ORAL SUSPENSION 30 ML CUP PO ONE (10:58)
[2025-07-02 07:03] LABS: MCHC 32.1 g/dl (32.3-36.5); MEAN CELL VOLUME 87.8 fl (79.0-92.2); MEAN PLT VOLUME 9.1 fl (9.4-12.4); RDW 15.9 % (12.2-16.4)
[2025-07-02 08:22] LABS: GLUCOSE,RANDOM 89.0 mg/dL (74-106); TOT PROT 6.3 g/dl (6.4-8.2)
[2025-07-02 08:23] LABS: CO2 25.0 mmol/L (21-32)
[2025-07-02 08:24] LABS: ALK PHOS 93.0 U/L (40-150)
[2025-07-02 08:27] LABS: CREATININE 1.17 mg/dL (0.55-1.3); SGOT/AST 23.0 U/L (5-34); SGPT/ALT 21.0 U/L (0-55)
[2025-07-03] MEDS ORDERED: LACTULOSE 20 GM/30 ML UDC (FOR ORAL USE ONLY) PO PRN (09:13)
[2025-07-03] MEDS: MAGNESIUM HYDROX 2400MG/30ML ORAL SUSPENSION 30 ML CUP PO ONE (10:36)
[2025-07-03] MEDS: SENNOSIDES/DOCUSATE COMBO (SENNA PLUS) TABLET (UD) PO ONE (10:37)
[2025-07-03] MEDS: BISACODYL 10 MG SUPP.RECT PR ONE (10:42)
[2025-07-03] MEDS: SENNOSIDES/DOCUSATE COMBO (SENNA PLUS) TABLET (UD) PO SCH (21:21)
[2025-07-04 06:04] VITALS: RESP 18
[2025-07-04] MEDS: POLYETHYLENE GLYCOL (HEALTHYLAX) 3350 17 GM PACKET PO SCH (09:57)
[2025-07-04] MEDS: GLYCERIN 1 RECTAL SUPPOSITORY, ADULT RC ONE (15:00)
[2025-07-04 17:15] VITALS: BP 121/72; PULSE 61; TEMP 98.1
== END 2025-07-04 18:12 | disposition home or self-care (01) ==
LOC: JER 23:19 → JERBED 23:49 → INTOOBSV 23:49 → OBSVTOIN 23:49 → UNDOADMOB 23:49 → JERBED 06-27 06:47 → J4S 06-27 06:47 → JERBED 06-27 10:52
PROVIDERS: ADMIT Hospitalist; ATTEND Internal Medicine
PROC: 3E033NZ Introduction of Analgesics, Hypnotics, Sedatives into Peripheral Vein, Percutaneous Approach (ICD-10-PCS; principal; 2025-06-27)
DX: I48.0 Paroxysmal atrial fibrillation (principal); I12.9 Hypertensive chronic kidney disease with stage 1 through stage 4 chronic kidney disease, or unspecified chronic kidney disease; I11.0 Hypertensive heart disease with heart failure; N18.9 Chronic kidney disease, unspecified; E78.00 Pure hypercholesterolemia, unspecified; R07.9 Chest pain, unspecified; I25.10 Atherosclerotic heart disease of native coronary artery without angina pectoris; D64.9 Anemia, unspecified; Z95.5 Presence of coronary angioplasty implant and graft; Z79.01 Long term (current) use of anticoagulants; Z85.46 Personal history of malignant neoplasm of prostate; I25.2 Old myocardial infarction; Z72.0 Tobacco use
CPT/HCPCS: 36415; 71045-TC-FY; 71275-TC; 74174-TC; 80053; 82272; 82550; 82553; 82607; 82728; 82746; 82962; 83540; 83550; 83735; 84100; 84484; 85025; 85027; 85610; 85730; 86850; 86900; 86901; 93005; 93010; 96374; 97116-GP; 97161-GP; 99285-25; G0378

== ENCOUNTER 2025-07-05 21:37 | Emergency (ER) | payer OTHER ==
[2025-07-05 21:46] VITALS: BMI 21.9
[2025-07-06 02:47] LABS: EPI CELLS 23 /uL (0-25.1); HYALINE CASTS 0 /uL (0-3.1); URINE APPEARANCE CLOUDY; URINE BACTERIA 22 /uL (0-1359); URINE BILIRUBIN NEGATIVE (NEGATIVE); URINE COLOR YELLOW; URINE GLUCOSE (UA) 3+ (NEGATIVE); URINE KETONE NEGATIVE (NEGATIVE); URINE LEUK ESTERASE 1+ (NEGATIVE); URINE NITRITE NEGATIVE (NEGATIVE); URINE PROTEIN 1+ (NEGATIVE); URINE RBC 127 /uL (0-23.9); URINE UROBILINOGEN 0.2 mg/dL (0.2-1.0); URINE WBC 1097 /uL (0-25.8)
[2025-07-06 03:00] VITALS: BP 150/95; PULSE 67; RESP 16; TEMP 97.9
[2025-07-06] MEDS ORDERED: SULFAMETHOXAZOLE/TRIMETHOPRIM 800MG/160MG D.S. TABLET ONE (03:18)
[2025-07-06] MEDS: SULFAMETHOXAZOLE/TRIMETHOPRIM 800MG/160MG D.S. TABLET PO ONE (03:23)
== END 2025-07-06 06:08 | disposition home or self-care (01) ==
LOC: JER 21:37
DX: N39.0 Urinary tract infection, site not specified (principal); R30.0 Dysuria; R31.9 Hematuria, unspecified
CPT/HCPCS: 81003; 87086; 99283-25

== ENCOUNTER 2025-07-14 15:24 | Inpatient (IN) | payer OTHER ==
[2025-07-14 15:36] VITALS: BMI 21.9
[2025-07-14] MEDS: ACETAMINOPHEN 325 MG TABLET (FP) PO ONE (17:47)
[2025-07-14] MEDS ORDERED: ACETAMINOPHEN 325 MG TABLET (FP) ONE (17:54)
[2025-07-14] MEDS ORDERED: KETOROLAC TROMETHAMINE 15 MG/ML VIAL ONE (18:57)
[2025-07-14] MEDS: KETOROLAC TROMETHAMINE 15 MG/ML VIAL IM ONE (19:15)
[2025-07-14] MEDS: OXYBUTYNIN CHLORIDE 5 MG TABLET PO ONE (21:26)
[2025-07-14 21:34] LABS: ABSOLUTE IMMATURE GRANULOCYTES 0.01 x10^3/uL (0.0-0.031); BASOPHILS # 0.03 x10^3/uL (0.01-0.08); EOSINOPHIL % 5.2 % (0.8-7.0); EOSINOPHILS # 0.24 x10^3/uL (0.04-0.54); MCHC 31.2 g/dl (32.3-36.5); MEAN CELL VOLUME 88.0 fl (79.0-92.2); MEAN PLT VOLUME 9.0 fl (9.4-12.4); MONOCYTE # 0.54 x10^3/uL (0.30-0.82); MONOCYTE % 11.7 % (5.3-12.2); RDW 16.4 % (12.2-16.4)
[2025-07-14 21:54] LABS: GLUCOSE,RANDOM 114.0 mg/dL (74-106); TOT PROT 6.1 g/dl (6.4-8.2)
[2025-07-14 21:55] LABS: CO2 24.0 mmol/L (21-32)
[2025-07-14 21:56] LABS: ALK PHOS 99.0 U/L (40-150)
[2025-07-14 21:59] LABS: SGOT/AST 20.0 U/L (5-34); SGPT/ALT 14.0 U/L (0-55)
[2025-07-14 22:00] LABS: CREATININE 1.49 mg/dL (0.55-1.3)
[2025-07-14 22:19] LABS: HCV DIAGNOSTIC IN-HOUSE W/RFLX NON-REACTIVE (NONREACTIVE)
[2025-07-14 22:20] LABS: HIV INTERPRETATION NEGATIVE (NEGATIVE)
[2025-07-14 23:00] LABS: INR 1.05 (0.83-1.09); PROTHROMBIN TIME (PATIENT) 11.6 SEC (9.7-13.0)
[2025-07-14 23:03] LABS: ACTIVATED PTT 29.4 SECONDS (25.2-36.5)
[2025-07-15] MEDS: LACTATED RINGERS SOLUTION 1,000 ML/1,000 ML INFUS.BAG IV SCH ×2 (00:44→16:44)
[2025-07-15 07:15] LABS: RDW 16.6 % (12.2-16.4)
[2025-07-15 07:17] LABS: ABSOLUTE IMMATURE GRANULOCYTES 0.04 x10^3/uL (0.0-0.031); BASOPHILS # 0.03 x10^3/uL (0.01-0.08); EOSINOPHIL % 6.0 % (0.8-7.0); EOSINOPHILS # 0.25 x10^3/uL (0.04-0.54); IMMATURE PLATELET FRACTION # 5.70 x10^3/uL; MCHC 31.3 g/dl (32.3-36.5); MEAN CELL VOLUME 88.5 fl (79.0-92.2); MEAN PLT VOLUME 9.4 fl (9.4-12.4); MONOCYTE # 0.58 x10^3/uL (0.30-0.82); MONOCYTE % 13.9 % (5.3-12.2)
[2025-07-15 07:27] LABS: GLUCOSE,RANDOM 89.0 mg/dL (74-106); TOT PROT 5.8 g/dl (6.4-8.2)
[2025-07-15 07:28] LABS: CO2 25.0 mmol/L (21-32)
[2025-07-15 07:30] LABS: ALK PHOS 97.0 U/L (40-150)
[2025-07-15 07:32] LABS: SGPT/ALT 11.0 U/L (0-55)
[2025-07-15 07:33] LABS: CREATININE 1.5 mg/dL (0.55-1.3); IRON SERUM 38.0 ug/dL (50-175); SGOT/AST 17.0 U/L (5-34)
[2025-07-15] MEDS ORDERED: TAMSULOSIN HCL 0.4 MG CAP ONE (08:44)
[2025-07-15] MEDS: TAMSULOSIN HCL 0.4 MG CAP PO SCH (08:54)
[2025-07-15 09:46] LABS: COCAINE, UR POSITIVE (NEGATIVE)
[2025-07-15 09:47] LABS: METHADONE, UR NEGATIVE (NEGATIVE); OPIATES, URI NEGATIVE (NEGATIVE); PHENCYCLIDINE,URINE NEGATIVE (NEGATIVE); URINE AMPHETAMINES NEGATIVE (NEGATIVE); URINE BARBITURATES NEGATIVE (NEGATIVE); URINE BENZODIAZEPINES NEGATIVE (NEGATIVE)
[2025-07-15] MEDS: SPIRONOLACTONE 25 MG TABLET PO SCH (10:06)
[2025-07-15] MEDS: CARVEDILOL 6.25 MG TABLET (FP) PO SCH (10:06)
[2025-07-15] MEDS: SACUBITRIL/VALSARTAN 24 MG-26 MG TABLET PO SCH (10:07)
[2025-07-15] MEDS: ISOSORBIDE MONONITRATE 60 MG TAB.SR.24H (FP) PO SCH (10:07)
[2025-07-15] MEDS: FINASTERIDE 5 MG TABLET (FP) PO SCH (10:07)
[2025-07-15] MEDS: FUROSEMIDE 20 MG TABLET (FP) PO SCH (10:07)
[2025-07-15 16:27] LABS: ABSOLUTE IMMATURE GRANULOCYTES 0.01 x10^3/uL (0.0-0.031); BASOPHILS # 0.05 x10^3/uL (0.01-0.08); EOSINOPHIL % 6.0 % (0.8-7.0); EOSINOPHILS # 0.27 x10^3/uL (0.04-0.54); MCHC 31.1 g/dl (32.3-36.5); MEAN CELL VOLUME 88.9 fl (79.0-92.2); MEAN PLT VOLUME 9.7 fl (9.4-12.4); MONOCYTE # 0.53 x10^3/uL (0.30-0.82); MONOCYTE % 11.7 % (5.3-12.2); RDW 16.6 % (12.2-16.4)
[2025-07-15] MEDS: ATORVASTATIN CA 80 MG TABLET (FP) PO SCH (21:25)
[2025-07-15] MEDS: IRON SUCROSE INJECTION 200 MG in SODIUM CHLORIDE 100 ML IVPB ONE (21:25)
[2025-07-16] MEDS: ACETAMINOPHEN 500 MG TABLET (FP) PO ONE ×2 (00:56→20:28)
[2025-07-16 06:54] LABS: ABSOLUTE IMMATURE GRANULOCYTES 0.00 x10^3/uL (0.0-0.031); BASOPHILS # 0.03 x10^3/uL (0.01-0.08); EOSINOPHIL % 5.4 % (0.8-7.0); EOSINOPHILS # 0.22 x10^3/uL (0.04-0.54); MCHC 32.1 g/dl (32.3-36.5); MEAN CELL VOLUME 85.6 fl (79.0-92.2); MEAN PLT VOLUME 9.7 fl (9.4-12.4); MONOCYTE # 0.44 x10^3/uL (0.30-0.82); MONOCYTE % 10.8 % (5.3-12.2); RDW 16.5 % (12.2-16.4)
[2025-07-16 08:13] LABS: GLUCOSE,RANDOM 102.0 mg/dL (74-106); TOT PROT 5.5 g/dl (6.4-8.2)
[2025-07-16 08:14] LABS: CO2 23.0 mmol/L (21-32)
[2025-07-16 08:16] LABS: ALK PHOS 92.0 U/L (40-150)
[2025-07-16 08:18] LABS: SGOT/AST 16.0 U/L (5-34); SGPT/ALT 10.0 U/L (0-55)
[2025-07-16 08:19] LABS: CREATININE 1.23 mg/dL (0.55-1.3)
[2025-07-16] MEDS: MAGNESIUM OXIDE 400 MG TABLET (FP) PO SCH (22:45)
[2025-07-16] MEDS: IRON SUCROSE INJECTION 200 MG in SODIUM CHLORIDE 100 ML IVPB ONE (22:45)
[2025-07-17 08:07] LABS: ABSOLUTE IMMATURE GRANULOCYTES 0.02 x10^3/uL (0.0-0.031); BASOPHILS # 0.03 x10^3/uL (0.01-0.08); EOSINOPHIL % 3.2 % (0.8-7.0); EOSINOPHILS # 0.19 x10^3/uL (0.04-0.54); MCHC 31.6 g/dl (32.3-36.5); MEAN CELL VOLUME 85.9 fl (79.0-92.2); MEAN PLT VOLUME 9.5 fl (9.4-12.4); MONOCYTE # 0.72 x10^3/uL (0.30-0.82); MONOCYTE % 12.2 % (5.3-12.2); RDW 16.3 % (12.2-16.4)
[2025-07-17 08:32] LABS: GLUCOSE,RANDOM 83.0 mg/dL (74-106); TOT PROT 5.6 g/dl (6.4-8.2)
[2025-07-17 08:33] LABS: CO2 25.0 mmol/L (21-32)
[2025-07-17 08:37] LABS: SGPT/ALT 10.0 U/L (0-55)
[2025-07-17 08:38] LABS: CREATININE 1.12 mg/dL (0.55-1.3); SGOT/AST 21.0 U/L (5-34)
[2025-07-17 09:26] LABS: ALK PHOS 109.0 U/L (40-150)
[2025-07-17] MEDS: MAGNESIUM OXIDE 400 MG TABLET (FP) PO ONE (09:47)
[2025-07-17] MEDS: ACETAMINOPHEN 500 MG TABLET (FP) PO ONE (20:14)
[2025-07-17] MEDS: APIXABAN 5 MG TABLET PO SCH (21:19)
[2025-07-17] MEDS: MELATONIN 5 MG TABLETS PO PRN (21:21)
[2025-07-18 15:47] VITALS: BP 122/78; PULSE 62; RESP 18; TEMP 98.4
== END 2025-07-18 15:58 | disposition home health service (06) | DRG 812 ==
LOC: JER 15:24 → JERBED 22:11 → OBSVTOIN 22:11 → J8W 07-15 14:10
PROVIDERS: ADMIT Student in an Organized Health Care Education/Training Program; ATTEND Nurse Practitioner Family
DX: D62 Acute posthemorrhagic anemia (principal); I13.0 Hypertensive heart and chronic kidney disease with heart failure and stage 1 through stage 4 chronic kidney disease, or unspecified chronic kidney disease; I50.22 Chronic systolic (congestive) heart failure; N17.9 Acute kidney failure, unspecified; N40.0 Benign prostatic hyperplasia without lower urinary tract symptoms; N18.9 Chronic kidney disease, unspecified; I48.0 Paroxysmal atrial fibrillation; I25.10 Atherosclerotic heart disease of native coronary artery without angina pectoris; R31.0 Gross hematuria; D64.9 Anemia, unspecified; R33.9 Retention of urine, unspecified
CPT/HCPCS: 36415; 74178-TC; 80053; 80307; 82728; 83540; 83550; 83735; 84100; 84153; 85025; 85610; 85730; 86803; 86850; 86900; 86901; 87389; 93005; 93010; 99285-25; J1756; Q9967

== ENCOUNTER 2025-08-08 20:27 | Emergency (ER) | payer OTHER ==
[2025-08-08 20:32] VITALS: TEMP 98.1; BMI 22.5
[2025-08-08] MEDS ORDERED: PHENAZOPYRIDINE HCL 100 MG TABLET (FP) ONE (22:11)
[2025-08-08] MEDS ORDERED: ACETAMINOPHEN 325 MG TABLET (FP) ONE (22:11)
[2025-08-08] MEDS: ACETAMINOPHEN 325 MG TABLET (FP) PO ONE (22:18)
[2025-08-08] MEDS: PHENAZOPYRIDINE HCL 100 MG TABLET (FP) PO ONE (22:19)
[2025-08-09 06:24] VITALS: BP 127/64; PULSE 78; RESP 16
== END 2025-08-09 06:24 | disposition home or self-care (01) ==
LOC: JER 20:27
DX: T83.091A Other mechanical complication of indwelling urethral catheter, initial encounter (principal)
CPT/HCPCS: 99283-25

== ENCOUNTER 2025-08-19 18:27 | Inpatient (IN) | payer OTHER ==
[2025-08-19 20:07] LABS: ABSOLUTE IMMATURE GRANULOCYTES 0.01 x10^3/uL (0.0-0.031); BASOPHILS # 0.04 x10^3/uL (0.01-0.08); EOSINOPHIL % 0.6 % (0.8-7.0); EOSINOPHILS # 0.04 x10^3/uL (0.04-0.54); MCHC 31.1 g/dl (32.3-36.5); MEAN CELL VOLUME 86.3 fl (79.0-92.2); MEAN PLT VOLUME 9.5 fl (9.4-12.4); MONOCYTE # 0.44 x10^3/uL (0.30-0.82); MONOCYTE % 7.0 % (5.3-12.2); RDW 17.5 % (12.2-16.4)
[2025-08-19 20:44] LABS: GLUCOSE,RANDOM 109 mg/dL (74-106)
[2025-08-19 20:45] LABS: CO2 23 mmol/L (21-32)
[2025-08-19 20:49] LABS: SGOT/AST 90 U/L (5-34); SGPT/ALT 27 U/L (0-55)
[2025-08-19 20:50] LABS: CREATININE 1.21 mg/dL (0.55-1.3)
[2025-08-19 20:54] LABS: ALK PHOS 137 U/L (40-150); TOT PROT 8.8 g/dl (6.4-8.2)
[2025-08-19] MEDS: SODIUM CHLORIDE 500 ML IV STA (23:25)
[2025-08-19 23:28] LABS: GLUCOSE,RANDOM 108.0 mg/dL (74-106)
[2025-08-19 23:29] LABS: CO2 24.0 mmol/L (21-32)
[2025-08-19 23:33] LABS: CREATININE 1.41 mg/dL (0.55-1.3)
[2025-08-20] MEDS ORDERED: MORPHINE SULFATE 2 MG/ML SYRINGE IVPUSH PRN (00:48)
[2025-08-20] MEDS ORDERED: NITROGLYCERIN SUBLINGUAL 1/150 0.4 MG TAB SL PRN (00:52)
[2025-08-20] MEDS ORDERED: SODIUM CHLORIDE 1,000 ML IV SCH (01:00)
[2025-08-20 04:38] VITALS: BMI 21.7
[2025-08-20] MEDS ORDERED: FLU VACC TS2025-26(6MOS UP)/PF 45 MCG/0.5 ML SYRINGE IM ONE (08:00)
[2025-08-20 08:23] LABS: URINE APPEARANCE TURBID; URINE COLOR RED
[2025-08-20 08:24] LABS: URINE BILIRUBIN 1+ (NEGATIVE); URINE GLUCOSE (UA) 3+ (NEGATIVE); URINE KETONE NEGATIVE (NEGATIVE); URINE PROTEIN 2+ (NEGATIVE); URINE UROBILINOGEN 0.2 mg/dL (0.2-1.0)
[2025-08-20 08:25] LABS: URINE LEUK ESTERASE 2+ (NEGATIVE); URINE NITRITE NEGATIVE (NEGATIVE)
[2025-08-20] MEDS: CLOPIDOGREL BISULFATE 75 MG TABLET (FP) PO SCH (09:44)
[2025-08-20] MEDS: TAMSULOSIN HCL 0.4 MG CAP PO SCH (09:44)
[2025-08-20] MEDS: ISOSORBIDE MONONITRATE 60 MG TAB.SR.24H (FP) PO SCH (09:44)
[2025-08-20] MEDS: APIXABAN 5 MG TABLET PO SCH (09:44)
[2025-08-20] MEDS: FERROUS SO4 325 MG TABLET (FP) PO SCH (09:44)
[2025-08-20] MEDS: CARVEDILOL 6.25 MG TABLET (FP) PO SCH (09:44)
[2025-08-20] MEDS: FINASTERIDE 5 MG TABLET (FP) PO SCH (09:45)
[2025-08-20] MEDS ORDERED: SPIRONOLACTONE 25 MG TABLET PO SCH (10:00)
[2025-08-20] MEDS ORDERED: FUROSEMIDE 20 MG TABLET (FP) PO SCH (10:00)
[2025-08-20] MEDS ORDERED: CEFTRIAXONE 1 GM in DEXTROSE 5%-WATER - 50 ML IVPB SCH (11:08)
[2025-08-20] MEDS: CEFTRIAXONE 1 GM in DEXTROSE 5%-WATER - 50 ML IVPB SCH (11:53)
[2025-08-20] MEDS: SODIUM CHLORIDE 1,000 ML IV SCH (12:00)
[2025-08-20] MEDS: SACUBITRIL/VALSARTAN 24 MG-26 MG TABLET PO SCH (12:00)
[2025-08-20 19:34] LABS: HIV INTERPRETATION NEGATIVE (NEGATIVE)
[2025-08-20 19:35] LABS: HCV DIAGNOSTIC IN-HOUSE W/RFLX NON-REACTIVE (NONREACTIVE)
[2025-08-20] MEDS: ATORVASTATIN CA 40 MG TABLET (FP) PO SCH (21:28)
[2025-08-20] MEDS ORDERED: ATORVASTATIN CA 80 MG TABLET (FP) PO SCH (22:00)
[2025-08-20] MEDS ORDERED: morphine CARPU-JECT 2 MG/1 ML DISP.SYRIN IVPUSH PRN (23:44)
[2025-08-21 09:01] LABS: ABSOLUTE IMMATURE GRANULOCYTES 0.01 x10^3/uL (0.0-0.031); BASOPHILS # 0.02 x10^3/uL (0.01-0.08); EOSINOPHIL % 5.1 % (0.8-7.0); EOSINOPHILS # 0.18 x10^3/uL (0.04-0.54); MCHC 31.8 g/dl (32.3-36.5); MEAN CELL VOLUME 84.8 fl (79.0-92.2); MEAN PLT VOLUME 9.6 fl (9.4-12.4); MONOCYTE # 0.42 x10^3/uL (0.30-0.82); MONOCYTE % 11.9 % (5.3-12.2); RDW 17.2 % (12.2-16.4)
[2025-08-21 09:06] LABS: INR 1.21 (0.83-1.09); PROTHROMBIN TIME (PATIENT) 13.2 SEC (9.7-13.0)
[2025-08-21 09:34] LABS: GLUCOSE,RANDOM 150.0 mg/dL (74-106); TOT PROT 6.0 g/dl (6.4-8.2)
[2025-08-21 09:35] LABS: CO2 23.0 mmol/L (21-32)
[2025-08-21 09:39] LABS: SGOT/AST 22.0 U/L (5-34); SGPT/ALT 16.0 U/L (0-55)
[2025-08-21 09:40] LABS: CREATININE 1.07 mg/dL (0.55-1.3)
[2025-08-21 10:08] LABS: ALK PHOS 112.0 U/L (40-150)
[2025-08-21] MEDS: ACETAMINOPHEN 1000 MG/100 ML BAG IVPB SCH (15:01)
[2025-08-22 07:47] LABS: ABSOLUTE IMMATURE GRANULOCYTES 0.00 x10^3/uL (0.0-0.031); BASOPHILS # 0.03 x10^3/uL (0.01-0.08); EOSINOPHIL % 3.8 % (0.8-7.0); EOSINOPHILS # 0.13 x10^3/uL (0.04-0.54); MCHC 31.8 g/dl (32.3-36.5); MEAN CELL VOLUME 84.1 fl (79.0-92.2); MEAN PLT VOLUME 9.2 fl (9.4-12.4); MONOCYTE # 0.45 x10^3/uL (0.30-0.82); MONOCYTE % 13.3 % (5.3-12.2); RDW 17.0 % (12.2-16.4)
[2025-08-22 08:08] LABS: GLUCOSE,RANDOM 83.0 mg/dL (74-106); TOT PROT 6.0 g/dl (6.4-8.2)
[2025-08-22 08:10] LABS: CO2 24.0 mmol/L (21-32)
[2025-08-22 08:14] LABS: CREATININE 1.02 mg/dL (0.55-1.3); SGOT/AST 19.0 U/L (5-34); SGPT/ALT 13.0 U/L (0-55)
[2025-08-22 08:22] LABS: ALK PHOS 115.0 U/L (40-150)
[2025-08-22] MEDS: EMPAGLIFLOZIN (JARDIANCE) 10 MG TABLET PO SCH (10:20)
[2025-08-23] MEDS: CEFTRIAXONE 1 GM in DEXTROSE 5%-WATER - 50 ML IVPB SCH (06:23)
[2025-08-23 08:21] LABS: ABSOLUTE IMMATURE GRANULOCYTES 0.00 x10^3/uL (0.0-0.031); BASOPHILS # 0.03 x10^3/uL (0.01-0.08); EOSINOPHIL % 2.9 % (0.8-7.0); EOSINOPHILS # 0.11 x10^3/uL (0.04-0.54); MCHC 32.0 g/dl (32.3-36.5); MEAN CELL VOLUME 84.1 fl (79.0-92.2); MEAN PLT VOLUME 9.5 fl (9.4-12.4); MONOCYTE # 0.43 x10^3/uL (0.30-0.82); MONOCYTE % 11.5 % (5.3-12.2); RDW 17.0 % (12.2-16.4)
[2025-08-23 08:53] LABS: GLUCOSE,RANDOM 79.0 mg/dL (74-106)
[2025-08-23 08:54] LABS: CO2 24.0 mmol/L (21-32)
[2025-08-23 08:59] LABS: CREATININE 1.12 mg/dL (0.55-1.3); SGOT/AST 19.0 U/L (5-34); SGPT/ALT 14.0 U/L (0-55)
[2025-08-23 09:05] LABS: ALK PHOS 122.0 U/L (40-150)
[2025-08-23 09:33] LABS: TOT PROT 6.3 g/dl (6.4-8.2)
[2025-08-24 11:55] VITALS: RESP 17
[2025-08-24 12:10] LABS: ABSOLUTE IMMATURE GRANULOCYTES 0.00 x10^3/uL (0.0-0.031); BASOPHILS # 0.02 x10^3/uL (0.01-0.08); EOSINOPHIL % 2.0 % (0.8-7.0); EOSINOPHILS # 0.08 x10^3/uL (0.04-0.54); MCHC 32.5 g/dl (32.3-36.5); MEAN CELL VOLUME 84.2 fl (79.0-92.2); MEAN PLT VOLUME 9.1 fl (9.4-12.4); MONOCYTE # 0.42 x10^3/uL (0.30-0.82); MONOCYTE % 10.5 % (5.3-12.2); RDW 17.4 % (12.2-16.4)
[2025-08-24 12:31] LABS: GLUCOSE,RANDOM 156.0 mg/dL (74-106); TOT PROT 6.2 g/dl (6.4-8.2)
[2025-08-24 12:32] LABS: CO2 25.0 mmol/L (21-32)
[2025-08-24 12:36] LABS: SGOT/AST 16.0 U/L (5-34); SGPT/ALT 13.0 U/L (0-55)
[2025-08-24 12:37] LABS: ALK PHOS 128.0 U/L (40-150); CREATININE 1.17 mg/dL (0.55-1.3)
[2025-08-24 15:57] VITALS: BP 113/74; PULSE 62; TEMP 98.6
== END 2025-08-24 16:16 | disposition home health service (06) | DRG 313 ==
LOC: JER 18:27 → JERBED 21:13 → INTOOBSV 21:13 → J6W TELE 08-20 02:55 → OBSVTOIN 08-20 12:25
PROVIDERS: ADMIT Hospitalist; ATTEND Internal Medicine
DX: R07.89 Other chest pain (principal); I50.32 Chronic diastolic (congestive) heart failure; I11.0 Hypertensive heart disease with heart failure; E11.9 Type 2 diabetes mellitus without complications; I25.10 Atherosclerotic heart disease of native coronary artery without angina pectoris; I48.0 Paroxysmal atrial fibrillation; E78.5 Hyperlipidemia, unspecified; E87.5 Hyperkalemia; R33.9 Retention of urine, unspecified; R31.0 Gross hematuria
CPT/HCPCS: 36415; 71045-TC-FY; 71275-TC; 76937; 80048; 80053; 81003; 82550; 82962; 83735; 84100; 84484; 85025; 85379; 85610; 86803; 87389; 93005; 93010; 99285-25; G0378; Q9967